=== PATIENT | female | born 1950 | race African-American/Black ===

== ENCOUNTER 2017-02-05 15:57 | Inpatient (IN) | payer OTHER ==
[2017-02-05] MEDS: SUCCINYLCHOLINE CHLORIDE VIAL 200 MG/10 ML VIAL IV STA ×2 (16:06→16:16)
[2017-02-05] MEDS ORDERED: MIDAZOLAM (PF) 1 MG/ML 5 ML VIAL IV STA (16:07)
[2017-02-05] MEDS ORDERED: EPINEPHrine 1 MG/ML 1 ML AMP SQ STA (16:07)
--- NOTE | 2017-02-05 16:27 | XR ---
EXAMINATION TYPE: XR chest 1V DATE OF EXAM: 02/05/2017 COMPARISON: NONE HISTORY: 66 year-old female post intubation, second attempt TECHNIQUE: Single frontal view of the chest is obtained. FINDINGS: ET tube tip appears satisfactory. Heart is borderline to mildly enlarged. Diffuse interstitial prominence and perihilar airspace opacit ies. No significant pleural effusion seen. IMPRESSION: 1. Satisfactory ET tube. 2. Correlate for CHF and pulmonary vascular congestion/developing interstitial pulmonary edema.
[2017-02-05] MEDS ORDERED: methylPREDNISolone SOD SUCCI 125 MG/2 ML VIAL IV STA (16:29)
[2017-02-05] MEDS ORDERED: IPRATROPIUM 0.5 MG/2.5 ML NEBU INHALATION STA (16:29)
[2017-02-05] MEDS ORDERED: ALBUTEROL NEBULIZED 2.5 MG/3 ML INHALATION STA (16:29)
[2017-02-05] MEDS ORDERED: PROPOFOL 1,000 MG/100 ML VIAL IV ONE (16:29)
[2017-02-05] MEDS ORDERED: SODIUM CHLORIDE 0.9% 1,000 ML IV STA ×2 (16:29)
[2017-02-05] MEDS ORDERED: PROPOFOL 1,000 MG/100 ML VIAL IV SCH (16:30)
--- NOTE | 2017-02-05 16:36 | XR ---
EXAMINATION TYPE: XR chest 1V portable DATE OF EXAM: 02/05/2017 COMPARISON: NONE HISTORY: Intubated TECHNIQUE: Single frontal view of the chest is obtained. FINDINGS: Endotracheal tube is high and could be advanced 1 to 2 cm. There is no sign of a pneumoth orax. Heart appears enlarged. I see no pleural effusion. There is probably pulmonary vascular congest ion. IMPRESSION: There is probably pulmonary edema and congestive heart failure. Cardiomegaly.
[2017-02-05 16:50] LABS: Anisocytosis Slight; Basophils # (A) 0.1 k/uL (0-0.2); Basophils % (A) 1 %; CH 26.7; CHCM 30.9; Eosinophils # (A) 0.2 k/uL (0-0.7); Eosinophils % (A) 2 %; HCT 38.9 % (34.0-46.0); HDW 2.25; HGB 11.9 gm/dL (11.4-16.0); Hypochromasia Slight; Luc # (Auto) 0.33; Luc % (Auto) 3; Lymphocytes # (A) 4.1 k/uL (1.0-4.8); Lymphocytes % (A) 37 %; MCH 26.5 pg (25.0-35.0); MCHC 30.6 g/dL (31.0-37.0); MCV 86.7 fL (80.0-100.0); Mean Platelet Volume 8.6; Monocytes % (A) 9 %; Neutrophils # (A) 5.4 k/uL (1.3-7.7); Neutrophils % (A) 49 %; RBC 4.49 m/uL (3.80-5.40); RDW 16.3 % (11.5-15.5); WBC 11.1 k/uL (3.8-10.6); WBC (Perox) 10.24
[2017-02-05 16:52] LABS: Calcium 9.2 mg/dL (8.4-10.2); Magnesium 1.6 mg/dL (1.6-2.3); Potassium 5.6 mmol/L (3.5-5.1); Total Bilirubin 0.5 mg/dL (0.2-1.3); Total Protein 7.5 g/dL (6.3-8.2)
--- NOTE | 2017-02-05 16:52 | ED ---
General Adult HPI - General Chief complaint: Shortness of Breath Stated complaint: diff breathing Time Seen by Provider: 02/05/17 16:22 Source: EMS, RN notes reviewed, old records reviewed Mode of arrival: EMS Limitations: altered mental status - History of Present Illness Initial comments: This is a 66-year-old female to the ER if severe extremities by EMS. Severe respiratory distress, on the nonrebreather and nonresponsive. Unable to obtain history from patient, history obtained from EMS and patient's chart - Related Data Home Medications Medication Instructions Recorded Confirmed Albuterol Inhaler [Ventolin Hfa 2 puff INHALATION RT-Q4H PRN 02/05/17 02/05/17 Inhaler] Albuterol Nebulized [Ventolin 2.5 mg INHALATION RT-TID 02/05/17 02/05/17 Nebulized] Aspirin EC [Ecotrin Low Dose] 81 mg PO DAILY 02/05/17 02/05/17 Atorvastatin [Lipitor] 10 mg PO DAILY 02/05/17 02/05/17 Budesonide [Pulmicort] 2 mg INHALATION RT-QID 02/05/17 02/05/17 Insulin Aspart [NovoLOG] See Protocol SQ AC-TID MDD 90 units 02/05/17 02/05/17 Insulin Glargine [Lantus] 56 unit SQ HS 02/05/17 02/05/17 Labetalol HCl [Trandate] 300 mg PO BID 02/05/17 02/05/17 Losartan Potassium [Cozaar] 100 mg PO DAILY 02/05/17 02/05/17 amLODIPine BESYLATE [Norvasc] 10 mg PO DAILY 02/05/17 02/05/17 traMADol HCL [Ultram] 50 mg PO Q6HR PRN 02/05/17 02/05/17 Allergies Allergy/AdvReac Type Severity Reaction Status Date / Time hydralazine Allergy Anaphylaxis Verified 02/05/17 16:10 Penicillins Allergy Anaphylaxis Verified 02/05/17 16:10 metformin AdvReac Unknown Verified 02/05/17 16:10 Review of Systems ROS Statement: Those systems with pertinent positive or pertinent negative responses have been documented in the HPI. ROS Other: All systems not noted in ROS Statement are negative. Past Medical History Additional Past Medical History / Comment(s): SOB History of Any Multi-Drug Resistant Organisms: Unobtainable Past Surgical History: Unable to Obtain Past Psychological History: Unable to Obtain General Exam Limitations: altered mental status General appearance: alert, anxious, lethargic, obtunded, in distress Head exam: Present: atraumatic, normocephalic, normal inspection Eye exam: Present: normal appearance, PERRL, EOMI. Absent: scleral icterus, conjunctival injection, periorbital swelling ENT exam: Present: normal exam, mucous membranes moist Neck exam: Present: normal inspection. Absent: tenderness, meningismus, lymphadenopathy Respiratory exam: Present: normal lung sounds bilaterally. Absent: respiratory distress, wheezes, rales, rhonchi, stridor Cardiovascular Exam: Present: regular rate, normal rhythm, normal heart sounds. Absent: systolic murmur, diastolic murmur, rubs, gallop, clicks GI/Abdominal exam: Present: soft, normal bowel sounds. Absent: distended, tenderness, guarding, rebound, rigid Extremities exam: Present: normal inspection, full ROM, normal capillary refill. Absent: tenderness, pedal edema, joint swelling, calf tenderness Back exam: Present: normal inspection Neurological exam: Present: alert, oriented X3, CN II-XII intact Psychiatric exam: Present: normal affect, normal mood Skin exam: Present: warm, dry, intact, normal color. Absent: rash Course Vital Signs 02/05/17 02/05/17 02/05/17 16:03 16:09 16:35 Temperature Pulse Rate 98 92 97 Respiratory 38 H 22 20 Rate Blood Pressure 174/85 135/68 130/65 O2 Sat by Pulse 54 L 100 100 Oximetry 02/05/17 02/05/17 02/05/17 16:49 16:58 17:16 Temperature 100.4 F H Pulse Rate 99 90 92 Respiratory 22 22 Rate Blood Pressure 140/70 139/65 O2 Sat by Pulse 100 100 Oximetry 02/05/17 02/05/17 02/05/17 17:20 17:30 18:00 Temperature Pulse Rate 88 94 80 Respiratory 22 Rate Blood Pressure 140/67 O2 Sat by Pulse 100 Oximetry - Reevaluation(s) Reevaluation #1: 02/05/17 18:17 Patient innovated profound hypoxia and altered mental status EKG Findings - EKG Comments: EKG Findings:: EKG shows sinus tachycardia rate 13, NC 186, QRS 90, QTc 474 Procedures - Intubation Time Out Performed: Yes Sedative: Versed Paralytic: Succinylcholine Laryngoscope: Katja Size: 4 ET Tube Size: 6.5 ET Tube Uncuffed: No Tube Secured Location: teeth Tube Placement Confirmation: visualized tube passing through cords, equal breath sounds bilaterally Patient Tolerated Procedure: well Intubation Complications: none Medical Decision Making - Medical Decision Making 66. ER for evaluation regarding respiratory distress, patient having profound hypoxia pneumonia and underlying COPD. Patient will be admitted for continued life-support, patient was placed under ICU - Lab Data Result diagrams: 02/05/17 16:05 02/05/17 16:05 Lab Results 02/05/17 02/05/17 02/05/17 Range/Units 16:05 16:05 16:05 WBC 11.1 H (3.8-10.6) k/uL RBC 4.49 (3.80-5.40) m/uL Hgb 11.9 (11.4-16.0) gm/dL Hct 38.9 (34.0-46.0) % MCV 86.7 (80.0-100.0) fL MCH 26.5 (25.0-35.0) pg MCHC 30.6 L (31.0-37.0) g/dL RDW 16.3 H (11.5-15.5) % Plt Count 256 (150-450) k/uL Neutrophils % 49 % Lymphocytes % 37 % Monocytes % 9 % Eosinophils % 2 % Basophils % 1 % Neutrophils # 5.4 (1.3-7.7) k/uL Lymphocytes # 4.1 (1.0-4.8) k/uL Monocytes # 1.0 (0-1.0) k/uL Eosinophils # 0.2 (0-0.7) k/uL Basophils # 0.1 (0-0.2) k/uL Hypochromasia Slight Anisocytosis Slight PT (9.0-12.0) sec INR (<1.2) APTT (22.0-30.0) sec Sample Site ABG pH (7.35-7.45) ABG pCO2 (35-45) mmHg ABG pO2 (83-108) mmHg ABG HCO3 (21-25) mmol/L ABG Total CO2 (19-24) mmol/L ABG O2 Saturation (94-97) % ABG Base Excess mmol/L FiO2 % Sodium 141 (137-145) mmol/L Potassium 5.6 H (3.5-5.1) mmol/L Chloride 104 (98-107) mmol/L Carbon Dioxide 26 (22-30) mmol/L Anion Gap 11 mmol/L BUN 22 H (7-17) mg/dL Creatinine 1.11 H (0.52-1.04) mg/dL Est GFR (MDRD) Af Amer 60 (>60 ml/min/1.73 sqM) Est GFR (MDRD) Non-Af 49 (>60 ml/min/1.73 sqM) Glucose 197 H (74-99) mg/dL Calcium 9.2 (8.4-10.2) mg/dL Magnesium 1.6 (1.6-2.3) mg/dL Total Bilirubin 0.5 (0.2-1.3) mg/dL AST 25 (14-36) U/L ALT 27 (9-52) U/L Alkaline Phosphatase 129 H (38-126) U/L Total Creatine Kinase 158 H (30-135) U/L CK-MB (CK-2) 0.5 (0.0-2.4) ng/mL CK-MB (CK-2) Rel Index 0.3 Troponin I <0.012 (0.000-0.034) ng/mL NT-Pro-B Natriuret Pep pg/mL Total Protein 7.5 (6.3-8.2) g/dL Albumin 4.3 (3.5-5.0) g/dL Urine Color Urine Appearance (Clear) Urine pH (5.0-8.0) Ur Specific Emerson (1.001-1.035) Urine Protein (Negative) Urine Glucose (UA) (Negative) Urine Ketones (Negative) Urine Blood (Negative) Urine Nitrite (Negative) Urine Bilirubin (Negative) Urine Urobilinogen (<2.0) mg/dL Ur Leukocyte Esterase (Negative) Urine RBC (0-5) /hpf Urine WBC (0-5) /hpf Urine Mucus (None) /hpf 02/05/17 02/05/17 02/05/17 Range/Units 16:05 16:05 16:30 WBC (3.8-10.6) k/uL RBC (3.80-5.40) m/uL Hgb (11.4-16.0) gm/dL Hct (34.0-46.0) % MCV (80.0-100.0) fL MCH (25.0-35.0) pg MCHC (31.0-37.0) g/dL RDW (11.5-15.5) % Plt Count (150-450) k/uL Neutrophils % % Lymphocytes % % Monocytes % % Eosinophils % % Basophils % % Neutrophils # (1.3-7.7) k/uL Lymphocytes # (1.0-4.8) k/uL Monocytes # (0-1.0) k/uL Eosinophils # (0-0.7) k/uL Basophils # (0-0.2) k/uL Hypochromasia Anisocytosis PT 10.4 (9.0-12.0) sec INR 1.0 (<1.2) APTT 22.1 (22.0-30.0) sec Sample Site ABG pH (7.35-7.45) ABG pCO2 (35-45) mmHg ABG pO2 (83-108) mmHg ABG HCO3 (21-25) mmol/L ABG Total CO2 (19-24) mmol/L ABG O2 Saturation (94-97) % ABG Base Excess mmol/L FiO2 % Sodium (137-145) mmol/L Potassium (3.5-5.1) mmol/L Chloride (98-107) mmol/L Carbon Dioxide (22-30) mmol/L Anion Gap mmol/L BUN (7-17) mg/dL Creatinine (0.52-1.04) mg/dL Est GFR (MDRD) Af Amer (>60 ml/min/1.73 sqM) Est GFR (MDRD) Non-Af (>60 ml/min/1.73 sqM) Glucose (74-99) mg/dL Calcium (8.4-10.2) mg/dL Magnesium (1.6-2.3) mg/dL Total Bilirubin (0.2-1.3) mg/dL AST (14-36) U/L ALT (9-52) U/L Alkaline Phosphatase (38-126) U/L Total Creatine Kinase (30-135) U/L CK-MB (CK-2) (0.0-2.4) ng/mL CK-MB (CK-2) Rel Index Troponin I (0.000-0.034) ng/mL NT-Pro-B Natriuret Pep 53 pg/mL Total Protein (6.3-8.2) g/dL Albumin (3.5-5.0) g/dL Urine Color Light Yellow Urine Appearance Clear (Clear) Urine pH 6.0 (5.0-8.0) Ur Specific Emerson 1.008 (1.001-1.035) Urine Protein 1+ H (Negative) Urine Glucose (UA) 1+ H (Negative) Urine Ketones Negative (Negative) Urine Blood Negative (Negative) Urine Nitrite Negative (Negative) Urine Bilirubin Negative (Negative) Urine Urobilinogen <2.0 (<2.0) mg/dL Ur Leukocyte Esterase Negative (Negative) Urine RBC <1 (0-5) /hpf Urine WBC 1 (0-5) /hpf Urine Mucus Rare H (None) /hpf 02/05/17 Range/Units 17:12 WBC (3.8-10.6) k/uL RBC (3.80-5.40) m/uL Hgb (11.4-16.0) gm/dL Hct (34.0-46.0) % MCV (80.0-100.0) fL MCH (25.0-35.0) pg MCHC (31.0-37.0) g/dL RDW (11.5-15.5) % Plt Count (150-450) k/uL Neutrophils % % Lymphocytes % % Monocytes % % Eosinophils % % Basophils % % Neutrophils # (1.3-7.7) k/uL Lymphocytes # (1.0-4.8) k/uL Monocytes # (0-1.0) k/uL Eosinophils # (0-0.7) k/uL Basophils # (0-0.2) k/uL Hypochromasia Anisocytosis PT (9.0-12.0) sec INR (<1.2) APTT (22.0-30.0) sec Sample Site R RAD ABG pH 7.28 L (7.35-7.45) ABG pCO2 44 (35-45) mmHg ABG pO2 241 H (83-108) mmHg ABG HCO3 20 L (21-25) mmol/L ABG Total CO2 22 (19-24) mmol/L ABG O2 Saturation 99.8 H (94-97) % ABG Base Excess -5.4 mmol/L FiO2 100 % Sodium (137-145) mmol/L Potassium (3.5-5.1) mmol/L Chloride (98-107) mmol/L Carbon Dioxide (22-30) mmol/L Anion Gap mmol/L BUN (7-17) mg/dL Creatinine (0.52-1.04) mg/dL Est GFR (MDRD) Af Amer (>60 ml/min/1.73 sqM) Est GFR (MDRD) Non-Af (>60 ml/min/1.73 sqM) Glucose (74-99) mg/dL Calcium (8.4-10.2) mg/dL Magnesium (1.6-2.3) mg/dL Total Bilirubin (0.2-1.3) mg/dL AST (14-36) U/L ALT (9-52) U/L Alkaline Phosphatase (38-126) U/L Total Creatine Kinase (30-135) U/L CK-MB (CK-2) (0.0-2.4) ng/mL CK-MB (CK-2) Rel Index Troponin I (0.000-0.034) ng/mL NT-Pro-B Natriuret Pep pg/mL Total Protein (6.3-8.2) g/dL Albumin (3.5-5.0) g/dL Urine Color Urine Appearance (Clear) Urine pH (5.0-8.0) Ur Specific Emerson (1.001-1.035) Urine Protein (Negative) Urine Glucose (UA) (Negative) Urine Ketones (Negative) Urine Blood (Negative) Urine Nitrite (Negative) Urine Bilirubin (Negative) Urine Urobilinogen (<2.0) mg/dL Ur Leukocyte Esterase (Negative) Urine RBC (0-5) /hpf Urine WBC (0-5) /hpf Urine Mucus (None) /hpf - Radiology Data Radiology results: report reviewed (Chest x-ray initial shows high ET tube, infiltrates and edema Chest x-ray shows improving in position of ET tube), image reviewed Critical Care Time Critical Care Time: Yes Total Critical Care Time: 65 Disposition Clinical Impression: Congestive heart failure, Acute pulmonary edema, Adult respiratory distress syndrome, Acute exacerbation of chronic obstructive airways disease, Acute respiratory failure, Community acquired pneumonia, Hypoxia Disposition: ADMITTED IP TO THIS HOSP Condition: Critical Referrals: None,Stated [REFERRING] - 1-2 days
[2017-02-05 16:56] LABS: Partial Thromboplastin Time 22.1 sec (22.0-30.0); Prothrombin Time 10.4 sec (9.0-12.0)
[2017-02-05 17:02] LABS: Appearance,Urine Clear (Clear); Bilirubin,Urine Negative (Negative); Glucose,Urine (UA) 1+ (Negative); Ketones,Urine Negative (Negative); Leukocyte Esterase,Urine Negative (Negative); Mucus,Urine Rare /hpf; Nitrite,Urine Negative (Negative); Particle Count 1875; Protein,Urine 1+ (Negative); RBC,Urine <1 /hpf (0-5); Specific Gravity,Urine 1.008 (1.001-1.035); UA Billing (MACRO vs. MICRO) MICRO; Urobilinogen,Urine <2.0 mg/dL (<2.0); WBC,Urine 1 /hpf (0-5)
[2017-02-05 17:03] LABS: Creatine Kinase 158 U/L (30-135)
[2017-02-05 17:15] LABS: Creatine Kinase MB 0.5 ng/mL (0.0-2.4); Troponin I <0.012 ng/mL (0.000-0.034)
[2017-02-05] MEDS ORDERED: ONDANSETRON 4 MG/2 ML VIAL IVP PRN (17:30)
[2017-02-05] MEDS ORDERED: LEVOFLOXACIN 750MG-D5W PMX 750 MG in DEXTROSE/WATER 1 150ML.BAG IVPB STA (17:30)
[2017-02-05] MEDS ORDERED: ONDANSETRON 4 MG/2 ML VIAL IVP STA (17:30)
[2017-02-05] MEDS ORDERED: IPRATROPIUM-ALBUTEROL 3 ML NEB INHALATION STA (17:45)
[2017-02-05] MEDS ORDERED: ACETAMINOPHEN SUPPOSITORY 650 MG SUPP RECTAL PRN (17:46)
[2017-02-05] MEDS ORDERED: CEFEPIME 2 GM in SODIUM CHLORIDE 0.9% 50 ML IVPB STA (17:46)
[2017-02-05] MEDS ORDERED: ACETAMINOPHEN IV (For NPO) 1,000 MG in EMPTY BAG 1 BAG IVPB STA (17:46)
[2017-02-05] MEDS ORDERED: NALOXONE 0.4 MG/ML 1 ML VIAL IV PRN ×2 (17:46→19:46)
[2017-02-05] MEDS ORDERED: MIDAZOLAM 2 MG/2 ML VIAL IV STA (17:56)
[2017-02-05 18:00] LABS: ABG Base Excess -5.4 mmol/L; ABG HCO3 20 mmol/L (21-25); ABG PCO2 44 mmHg (35-45); ABG PH 7.28 (7.35-7.45); ABG PO2 241 mmHg (83-108); ABG TCO2 22 mmol/L (19-24)
[2017-02-05 18:02] LABS: ABG Oxygen Saturation 99.8 % (94-97)
[2017-02-05 19:01] LABS: Glucose,Whole Blood 198 mg/dL (75-99)
[2017-02-05] MEDS: IPRATROPIUM-ALBUTEROL 3 ML NEB INHALATION SCH ×2 (19:57→23:05)
[2017-02-05] MEDS ORDERED: Magnesium Replacement Protocol 1 EACH MISC MISCELLANE PRN (19:57)
--- NOTE | 2017-02-05 20:02 | XR ---
EXAMINATION TYPE: XR chest 1V portable DATE OF EXAM: 02/05/2017 COMPARISON: Today HISTORY: Tube placement TECHNIQUE: Single frontal view of the chest is obtained. FINDINGS: Endotracheal tube is low and 1 cm from the travon. There is a nasogastric tube that appear s in good position. I see no pneumothorax. Trachea is midline. There is no heart failure. IMPRESSION: Endotracheal tube is low and could be pulled back 2 cm. There is clearing of the mild pu lmonary congestion compared to supine exam at 4:00 PM today.
[2017-02-05 20:35] LABS: Glucose,Whole Blood 183 mg/dL (75-99)
[2017-02-05] MEDS: CHLORHEXIDINE GLUCONATE 15 ML CUP MUCOUS MEM SCH (20:35)
[2017-02-05] MEDS: MAGNESIUM SULFATE-D5W PMX 1 GM in DEXTROSE/WATER 1 100ML.BAG IVPB SCH ×2 (20:35→21:53)
[2017-02-05] MEDS: INSULIN LISPRO (humaLOG) 300 UNIT/3 ML VIAL SQ SCH ×2 (20:36→23:45)
[2017-02-05] MEDS: PROPOFOL 1,000 MG/100 ML VIAL IV SCH (22:12)
[2017-02-05 23:40] LABS: Glucose,Whole Blood 225 mg/dL (75-99)
[2017-02-05] MEDS: methylPREDNISolone SOD SUCCI 125 MG/2 ML VIAL IV SCH (23:46)
[2017-02-06] MEDS: PROPOFOL 1,000 MG/100 ML VIAL IV SCH ×5 (01:27→18:23)
[2017-02-06 01:32] LABS: Glucose,Whole Blood 196 mg/dL (75-99)
[2017-02-06 03:20] LABS: Anisocytosis Slight; Basophils % (A) 0 %; CH 26.6; Eosinophils # (A) 0.1 k/uL (0-0.7); Eosinophils % (A) 1 %; HCT 35.2 % (34.0-46.0); HDW 2.31; Hypochromasia Slight; Luc # (Auto) 0.02; Luc % (Auto) 0; Lymphocytes # (A) 0.9 k/uL (1.0-4.8); Lymphocytes % (A) 8 %; MCH 26.9 pg (25.0-35.0); MCHC 31.2 g/dL (31.0-37.0); MCV 86.1 fL (80.0-100.0); Mean Platelet Volume 8.6; Monocytes # (A) 0.2 k/uL (0-1.0); Monocytes % (A) 1 %; Neutrophils # (A) 9.5 k/uL (1.3-7.7); Neutrophils % (A) 89 %; RBC 4.09 m/uL (3.80-5.40); RDW 16.2 % (11.5-15.5); WBC 10.6 k/uL (3.8-10.6); WBC (Perox) 11.35
[2017-02-06 04:01] LABS: Anion Gap 10 mmol/L; Calcium 9.2 mg/dL (8.4-10.2); Carbon Dioxide 18 mmol/L (22-30); Chloride 110 mmol/L (98-107); Glucose 220 mg/dL (74-99); Non-African American GFR(MDRD) >60 (>60 ml/min/1.73 sqM); Sodium 138 mmol/L (137-145); Total Bilirubin 0.5 mg/dL (0.2-1.3); Total Protein 6.4 g/dL (6.3-8.2)
[2017-02-06 04:07] LABS: Blood Urea Nitrogen 19 mg/dL (7-17); Phosphorous 2.8 mg/dL (2.5-4.5)
[2017-02-06 04:08] LABS: ALT 24 U/L (9-52); AST 32 U/L (14-36); Alkaline Phosphatase 125 U/L (38-126); Magnesium 2.2 mg/dL (1.6-2.3)
[2017-02-06] MEDS: IPRATROPIUM-ALBUTEROL 3 ML NEB INHALATION SCH ×6 (04:11→23:38)
[2017-02-06 04:15] LABS: Glucose,Whole Blood 190 mg/dL (75-99)
[2017-02-06] MEDS: INSULIN LISPRO (humaLOG) 300 UNIT/3 ML VIAL SQ SCH ×6 (04:15→23:40)
[2017-02-06] MEDS: SODIUM CHLORIDE 0.9% 1,000 ML IV SCH ×3 (04:50→22:38)
[2017-02-06] MEDS: methylPREDNISolone SOD SUCCI 125 MG/2 ML VIAL IV SCH ×4 (05:28→23:37)
[2017-02-06 06:01] LABS: ABG Base Excess -3.2 mmol/L; ABG HCO3 21 mmol/L (21-25); ABG PCO2 39 mmHg (35-45); ABG PH 7.36 (7.35-7.45); ABG PO2 135 mmHg (83-108); ABG TCO2 23 mmol/L (19-24)
[2017-02-06] MEDS ORDERED: INSULIN LISPRO (humaLOG) 300 UNIT/3 ML VIAL SQ SCH (07:30)
[2017-02-06 08:22] LABS: Glucose,Whole Blood 209 mg/dL (75-99)
--- NOTE | 2017-02-06 08:24 | XR ---
EXAMINATION TYPE: XR chest 1V portable DATE OF EXAM: 02/06/2017 COMPARISON: 02/05/2017 INDICATION: Line adjustment TECHNIQUE: Single frontal view of the chest is obtained. FINDINGS: The heart size is slightly prominent. The pulmonary vasculature is normal. The lungs are clear. Endotracheal tube tip is approximately 2.2 cm above the travon appears slightly pulled back from prio r study. Nasogastric tube transverses the thorax curled within the left upper quadrant of the abdomen . IMPRESSION: 1. No acute pulmonary process. 2. Lines and catheters discussed above.
[2017-02-06] MEDS: CHLORHEXIDINE GLUCONATE 15 ML CUP MUCOUS MEM SCH ×2 (08:51→20:00)
[2017-02-06] MEDS: CEFEPIME 2 GM in SODIUM CHLORIDE 0.9% 50 ML IVPB SCH ×2 (08:51→20:00)
[2017-02-06] MEDS: PANTOPRAZOLE 40 MG/10 ML VIAL IV SCH (08:52)
[2017-02-06] MEDS: ENOXAPARIN 40 MG/0.4 ML SYRINGE SQ SCH (08:52)
[2017-02-06] MEDS: ENALAPRILAT 1.25 MG/ML 1 ML VIAL IVP PRN (10:04)
[2017-02-06] MEDS: MORPHINE SULFATE 4 MG/ML SYRINGE IV PRN ×3 (10:23→23:51)
[2017-02-06] MEDS: LORazepam 2 MG/ML SYRINGE IV PRN ×3 (10:57→15:38)
[2017-02-06] MEDS ORDERED: RX INFO: IV CONTRAST WAS GIVEN 1 EACH MISC MISCELLANE PRN (10:58)
--- NOTE | 2017-02-06 11:10 | P.HPIM ---
History of Present Illness H&P Date: 02/06/17 Chief Complaint: Difficulty breathing This is a 66-year-old -[place] female patient of Dr. Pizano with past medical history of diabetes, hypertension, possible COPD but nurse relates the patient has no history of smoking. Patient apparently was at [facility] in the ER and was discharged home and then came into [facility] emergency center by EMS for acute respiratory distress on nonrebreather and unresponsive. All tox was 54 and patient was intubated and placed on mechanical ventilation. Chest x-ray showed correlate for CHF and pulmonary vascular congestion and developing pulmonary edema, cardiomegaly. Repeat chest x-ray this morning addressed ET tube to be pulled back 2 cm. Clearing of the mild pulmonary congestion compared to yesterday's exam. Patient was started on DuoNeb treatments every 4 hours, cefepime 1 dose and continued on Levaquin, IV Solu-Medrol and admitted to the intensive care unit with consult to Dr. Norwood. Sputum culture is in progress. Tidal volume 450, FiO2 40 and PEEP of 5. NG tube is to suction at this time with plan to start tube feeding later today. Return from NG tube is dark brown/green. Blood pressure has been stable. Patient currently has had an admission at [facility] for DKA at that time was on ventilator support. Patient apparently improved and then left the facility AMA. Review of Systems ROS unobtainable: due to endotracheal tube Past Medical History Past Medical History: Diabetes Mellitus, Hypertension Additional Past Medical History / Comment(s): SOB, DKA History of Any Multi-Drug Resistant Organisms: Unobtainable Past Surgical History: Tonsillectomy Past Psychological History: Unable to Obtain Medications and Allergies Home Medications Medication Instructions Recorded Confirmed Type Albuterol Inhaler [Ventolin Hfa 2 puff INHALATION RT-Q4H PRN 02/05/17 02/05/17 History Inhaler] Albuterol Nebulized [Ventolin 2.5 mg INHALATION RT-TID 02/05/17 02/05/17 History Nebulized] Aspirin EC [Ecotrin Low Dose] 81 mg PO DAILY 02/05/17 02/05/17 History Atorvastatin [Lipitor] 10 mg PO DAILY 02/05/17 02/05/17 History Budesonide [Pulmicort] 2 mg INHALATION RT-QID 02/05/17 02/05/17 History Insulin Aspart [NovoLOG] See Protocol SQ AC-TID MDD 90 units 02/05/17 02/05/17 History Insulin Glargine [Lantus] 56 unit SQ HS 02/05/17 02/05/17 History Labetalol HCl [Trandate] 300 mg PO BID 02/05/17 02/05/17 History Losartan Potassium [Cozaar] 100 mg PO DAILY 02/05/17 02/05/17 History amLODIPine BESYLATE [Norvasc] 10 mg PO DAILY 02/05/17 02/05/17 History traMADol HCL [Ultram] 50 mg PO Q6HR PRN 02/05/17 02/05/17 History Allergies Allergy/AdvReac Type Severity Reaction Status Date / Time hydralazine Allergy Anaphylaxis Verified 02/05/17 16:10 Penicillins Allergy Anaphylaxis Verified 02/05/17 16:10 metformin AdvReac Unknown Verified 02/05/17 16:10 Physical Exam Vitals: Vital Signs Temp Pulse Resp BP Pulse Ox 02/06/17 07:59 81 02/06/17 07:00 76 14 152/90 99 02/06/17 06:00 74 14 142/79 100 02/06/17 05:00 76 14 139/80 99 02/06/17 04:23 75 02/06/17 04:13 76 02/06/17 04:00 97.7 F 66 14 139/72 99 02/06/17 03:00 73 14 133/70 99 02/06/17 02:00 73 13 128/71 99 02/06/17 01:00 77 14 129/69 99 02/06/17 00:00 97.5 F L 75 14 140/77 99 02/05/17 23:20 74 02/05/17 23:11 73 02/05/17 23:00 73 14 126/70 99 02/05/17 22:00 75 14 126/67 99 02/05/17 21:00 76 14 120/67 100 02/05/17 20:08 82 02/05/17 20:00 97.5 F L 78 14 125/80 100 02/05/17 19:57 79 02/05/17 19:06 97.5 F L 84 14 146/78 100 02/05/17 18:42 100.4 F H 83 16 134/70 100 02/05/17 18:00 80 02/05/17 17:30 94 22 140/67 100 02/05/17 17:20 88 02/05/17 17:16 92 22 139/65 100 02/05/17 16:58 90 02/05/17 16:49 100.4 F H 99 22 140/70 100 02/05/17 16:35 97 20 130/65 100 02/05/17 16:09 92 22 135/68 100 02/05/17 16:03 98 38 H 174/85 54 L Intake and Output 02/05/17 02/06/17 02/06/17 22:59 06:59 14:59 Intake Total 1583.754 900 100 Output Total 250 445 295 Balance 1333.754 455 -195 Intake: IV 550 800 100 Cefepime 2 gm In Sodium 50 Chloride 0.9% 50 ml @ 100 mls/hr IVPB ONCE STA Rx# :[id number] Magnesium Sulfate-D5w Pmx 200 1 gm In Dextrose/Water 1 100ml.bag @ 100 mls/hr IVPB Q1H RAISA Rx#: [id number] Sodium Chloride 0.9% 1, 300 800 100 000 ml @ 100 mls/hr IV . Q10H STA Rx#:[id number] Amount of Fluid Infused ( 1000 ml) Intake, IV Titration 33.754 100 Amount Propofol 1,000 mg In 100 33.754 ml @ 25 MCG/KG/MIN 15.555 mls/hr IV .Q6H26M ONE Rx #:[id number] Propofol 1,000 mg In 100 100 ml @ Titrate IV .Q0M RAISA Rx#:[id number] Output: Gastric Drainage 200 Urine 250 445 95 Other: Voiding Method Indwelling Catheter Indwelling Catheter Weight 103.7 kg 106.2 kg Gen: This is a morbidly obese 66-year-old -[place] female. She is currently intubated and on mechanical ventilation and appears to be comfortable. HEENT: Head is atraumatic, normocephalic. Pupils equal, round. Sclerae is anicteric. ET and OG in place. NECK: Thick and short. Supple. No JVD. No lymphadenopathy. No thyromegaly. LUNGS: Diminished but otherwise clear to auscultation. No intercostal retractions. HEART: Regular rate and rhythm. No murmur. ABDOMEN: Obese. Soft. Bowel sounds are present. No masses. No tenderness. EXTREMITIES: No pedal edema. No calf tenderness. NEUROLOGICAL: Patient is on sedation and mechanical ventilation. Results CBC & Chem 7: 02/06/17 03:09 02/06/17 04:35 Labs: Abnormal Lab Results - Last 24 Hours (Table) 02/05/17 02/05/17 02/05/17 Range/Units 16:05 16:05 16:05 WBC 11.1 H (3.8-10.6) k/uL Hgb (11.4-16.0) gm/dL MCHC 30.6 L (31.0-37.0) g/dL RDW 16.3 H (11.5-15.5) % Neutrophils # (1.3-7.7) k/uL Lymphocytes # (1.0-4.8) k/uL ABG pH (7.35-7.45) ABG pO2 (83-108) mmHg ABG HCO3 (21-25) mmol/L ABG O2 Saturation (94-97) % Potassium 5.6 H (3.5-5.1) mmol/L Chloride (98-107) mmol/L Carbon Dioxide (22-30) mmol/L BUN 22 H (7-17) mg/dL Creatinine 1.11 H (0.52-1.04) mg/dL Glucose 197 H (74-99) mg/dL POC Glucose (mg/dL) (75-99) mg/dL Alkaline Phosphatase 129 H (38-126) U/L Total Creatine Kinase 158 H (30-135) U/L Urine Protein (Negative) Urine Glucose (UA) (Negative) Urine Mucus (None) /hpf 02/05/17 02/05/17 02/05/17 Range/Units 16:30 17:12 18:59 WBC (3.8-10.6) k/uL Hgb (11.4-16.0) gm/dL MCHC (31.0-37.0) g/dL RDW (11.5-15.5) % Neutrophils # (1.3-7.7) k/uL Lymphocytes # (1.0-4.8) k/uL ABG pH 7.28 L (7.35-7.45) ABG pO2 241 H (83-108) mmHg ABG HCO3 20 L (21-25) mmol/L ABG O2 Saturation 99.8 H (94-97) % Potassium (3.5-5.1) mmol/L Chloride (98-107) mmol/L Carbon Dioxide (22-30) mmol/L BUN (7-17) mg/dL Creatinine (0.52-1.04) mg/dL Glucose (74-99) mg/dL POC Glucose (mg/dL) 198 H (75-99) mg/dL Alkaline Phosphatase (38-126) U/L Total Creatine Kinase (30-135) U/L Urine Protein 1+ H (Negative) Urine Glucose (UA) 1+ H (Negative) Urine Mucus Rare H (None) /hpf 02/05/17 02/05/17 02/06/17 Range/Units 20:34 23:39 01:31 WBC (3.8-10.6) k/uL Hgb (11.4-16.0) gm/dL MCHC (31.0-37.0) g/dL RDW (11.5-15.5) % Neutrophils # (1.3-7.7) k/uL Lymphocytes # (1.0-4.8) k/uL ABG pH (7.35-7.45) ABG pO2 (83-108) mmHg ABG HCO3 (21-25) mmol/L ABG O2 Saturation (94-97) % Potassium (3.5-5.1) mmol/L Chloride (98-107) mmol/L Carbon Dioxide (22-30) mmol/L BUN (7-17) mg/dL Creatinine (0.52-1.04) mg/dL Glucose (74-99) mg/dL POC Glucose (mg/dL) 183 H 225 H 196 H (75-99) mg/dL Alkaline Phosphatase (38-126) U/L Total Creatine Kinase (30-135) U/L Urine Protein (Negative) Urine Glucose (UA) (Negative) Urine Mucus (None) /hpf 02/06/17 02/06/17 02/06/17 Range/Units 03:09 03:09 04:13 WBC (3.8-10.6) k/uL Hgb 11.0 L (11.4-16.0) gm/dL MCHC (31.0-37.0) g/dL RDW 16.2 H (11.5-15.5) % Neutrophils # 9.5 H (1.3-7.7) k/uL Lymphocytes # 0.9 L (1.0-4.8) k/uL ABG pH (7.35-7.45) ABG pO2 (83-108) mmHg ABG HCO3 (21-25) mmol/L ABG O2 Saturation (94-97) % Potassium (3.5-5.1) mmol/L Chloride 110 H (98-107) mmol/L Carbon Dioxide 18 L (22-30) mmol/L BUN 19 H (7-17) mg/dL Creatinine (0.52-1.04) mg/dL Glucose 220 H (74-99) mg/dL POC Glucose (mg/dL) 190 H (75-99) mg/dL Alkaline Phosphatase (38-126) U/L Total Creatine Kinase (30-135) U/L Urine Protein (Negative) Urine Glucose (UA) (Negative) Urine Mucus (None) /hpf 02/06/17 Range/Units 05:48 WBC (3.8-10.6) k/uL Hgb (11.4-16.0) gm/dL MCHC (31.0-37.0) g/dL RDW (11.5-15.5) % Neutrophils # (1.3-7.7) k/uL Lymphocytes # (1.0-4.8) k/uL ABG pH (7.35-7.45) ABG pO2 135 H (83-108) mmHg ABG HCO3 (21-25) mmol/L ABG O2 Saturation 99.0 H (94-97) % Potassium (3.5-5.1) mmol/L Chloride (98-107) mmol/L Carbon Dioxide (22-30) mmol/L BUN (7-17) mg/dL Creatinine (0.52-1.04) mg/dL Glucose (74-99) mg/dL POC Glucose (mg/dL) (75-99) mg/dL Alkaline Phosphatase (38-126) U/L Total Creatine Kinase (30-135) U/L Urine Protein (Negative) Urine Glucose (UA) (Negative) Urine Mucus (None) /hpf Microbiology - Last 24 Hours (Table) 02/05/17 16:30 Gram Stain - Preliminary Sputum Sputum Culture - Preliminary Thrombosis Risk Factor Assmnt - DVT/VTE Prophylaxis DVT/VTE Prophylaxis: Pharmacologic Prophylaxis ordered Assessment and Plan Plan: 1. Acute hypoxic respiratory failure and hypoxic encephalopathy secondary to COPD exacerbation, pulmonary edema and possible pneumonia with signs of early sepsis/SIRS. Continue DuoNeb treatments every 4 hours, cephapirin, Levaquin, Solu-Medrol IV. Consult with Dr. Norwood. Continue vent management per Dr. Norwood. Blood cultures ordered. D-dimer has been ordered by pulmonary medicine with plan for CTA if elevated. Echocardiogram ordered. 2. Diabetes mellitus. Continue Humalog scale every 4 hours. 3. History of hypertension. Patient is on Norvasc 10 mg daily, losartan 100 mg daily, labetalol 300 mg twice daily. Vasotec 1.25 mg IV every 6 hours as needed for systolic blood pressure greater than 160. 4. Hyperlipidemia. Patient is normally on Lipitor 10 mg daily. 5. DVT prophylaxis. Lovenox. 6. Gastroesophageal prophylaxis. Protonix. Patient will be admitted to the hospital for a minimum of 4 night stay. Discharge plan: to be determined Impression and plan of care have been directed as dictated by the signing physician. Ning Nolen nurse practitioner acting as scribe for signing physician.
--- NOTE | 2017-02-06 11:16 | P.CNPUL ---
History of Present Illness Consult date: 02/06/17 Requesting physician: Tj Espinoza Reason for consult: other Chief complaint: ICU management History of present illness: This is a 66-year-old female patient being seen examined and evaluated today in the intensive care unit. Apparently the patient was out shopping and other customers unknown to her notice the patient being in respiratory distress and called EMS. When EMS arrived the patient is in severe respiratory distress with pulse ox in the 80s. She was transported to [facility] and upon arrival she had oxygen saturating in the 50s. The patient was also nonresponsive. Patient was intubated in the emergency room and is adamantly admitted to the ICU on full respiratory support. EKG showed sinus tachycardia. Chest x-ray showed congestive heart failure and pulmonary vascular congestion with developing interstitial pulmonary edema and cardiomegaly. Patient's labs were reviewed on initial troponins was negative no repeat troponins were ordered , there was no lactic acid or d-dimer obtained in the emergency room. Of note this patient has had multiple admissions recently at [facility] where she has left [place] in the past. Patient has also been seen in the emergency room at [facility] where she refused to be admitted as well. Upon examination the patient is on mechanical ventilation with propofol for sedation currently the mechanical ventilator settings are on assist control mode with a respiratory rate of 14, tidal volume of 450, FiO2 40% and a PEEP of 5. Currently the patient is on 40 mics of propofol. No vasopressors at this time. Patient is able to open eyes and move upper extremities. She does follow simple commands. Review of Systems ROS unobtainable: due to endotracheal tube Past Medical History Past Medical History: Diabetes Mellitus, Hypertension Additional Past Medical History / Comment(s): SOB, severe DKA History of Any Multi-Drug Resistant Organisms: Unobtainable Past Surgical History: Tonsillectomy Past Psychological History: Unable to Obtain Medications and Allergies Home Medications Medication Instructions Recorded Confirmed Type Albuterol Inhaler [Ventolin Hfa 2 puff INHALATION RT-Q4H PRN 02/05/17 02/05/17 History Inhaler] Albuterol Nebulized [Ventolin 2.5 mg INHALATION RT-TID 02/05/17 02/05/17 History Nebulized] Aspirin EC [Ecotrin Low Dose] 81 mg PO DAILY 02/05/17 02/05/17 History Atorvastatin [Lipitor] 10 mg PO DAILY 02/05/17 02/05/17 History Budesonide [Pulmicort] 2 mg INHALATION RT-QID 02/05/17 02/05/17 History Insulin Aspart [NovoLOG] See Protocol SQ AC-TID MDD 90 units 02/05/17 02/05/17 History Insulin Glargine [Lantus] 56 unit SQ HS 02/05/17 02/05/17 History Labetalol HCl [Trandate] 300 mg PO BID 02/05/17 02/05/17 History Losartan Potassium [Cozaar] 100 mg PO DAILY 02/05/17 02/05/17 History amLODIPine BESYLATE [Norvasc] 10 mg PO DAILY 02/05/17 02/05/17 History traMADol HCL [Ultram] 50 mg PO Q6HR PRN 02/05/17 02/05/17 History Allergies Allergy/AdvReac Type Severity Reaction Status Date / Time hydralazine Allergy Anaphylaxis Verified 02/05/17 16:10 Penicillins Allergy Anaphylaxis Verified 02/05/17 16:10 metformin AdvReac Unknown Verified 02/05/17 16:10 Physical Exam Vitals: Vital Signs Temp Pulse Resp BP Pulse Ox 02/06/17 10:00 83 22 153/106 99 02/06/17 09:00 79 14 151/84 100 02/06/17 08:16 77 02/06/17 08:00 97.9 F 74 14 145/85 99 02/06/17 07:59 81 02/06/17 07:00 76 14 152/90 99 02/06/17 06:00 74 14 142/79 100 02/06/17 05:00 76 14 139/80 99 02/06/17 04:23 75 02/06/17 04:13 76 02/06/17 04:00 97.7 F 66 14 139/72 99 02/06/17 03:00 73 14 133/70 99 02/06/17 02:00 73 13 128/71 99 02/06/17 01:00 77 14 129/69 99 02/06/17 00:00 97.5 F L 75 14 140/77 99 02/05/17 23:20 74 02/05/17 23:11 73 02/05/17 23:00 73 14 126/70 99 02/05/17 22:00 75 14 126/67 99 02/05/17 21:00 76 14 120/67 100 02/05/17 20:08 82 02/05/17 20:00 97.5 F L 78 14 125/80 100 02/05/17 19:57 79 02/05/17 19:06 97.5 F L 84 14 146/78 100 02/05/17 18:42 100.4 F H 83 16 134/70 100 02/05/17 18:00 80 02/05/17 17:30 94 22 140/67 100 02/05/17 17:20 88 02/05/17 17:16 92 22 139/65 100 02/05/17 16:58 90 02/05/17 16:49 100.4 F H 99 22 140/70 100 02/05/17 16:35 97 20 130/65 100 02/05/17 16:09 92 22 135/68 100 02/05/17 16:03 98 38 H 174/85 54 L Intake and Output 02/05/17 02/06/17 02/06/17 22:59 06:59 14:59 Intake Total 1583.754 900 502.178 Output Total 250 445 630 Balance 1333.754 455 -127.822 Intake: IV 550 800 400 Cefepime 2 gm In Sodium 50 Chloride 0.9% 50 ml @ 100 mls/hr IVPB ONCE STA Rx# :[id number] Magnesium Sulfate-D5w Pmx 200 1 gm In Dextrose/Water 1 100ml.bag @ 100 mls/hr IVPB Q1H RAISA Rx#: [id number] Sodium Chloride 0.9% 1, 300 800 400 000 ml @ 100 mls/hr IV . Q10H STA Rx#:[id number] Amount of Fluid Infused ( 1000 ml) Intake, IV Titration 33.754 100 102.178 Amount Propofol 1,000 mg In 100 33.754 ml @ 25 MCG/KG/MIN 15.555 mls/hr IV .Q6H26M ONE Rx #:[id number] Propofol 1,000 mg In 100 100 102.178 ml @ Titrate IV .Q0M RAISA Rx#:[id number] Output: Gastric Drainage 200 Urine 250 445 430 Other: Voiding Method Indwelling Catheter Indwelling Catheter Indwelling Catheter Weight 103.7 kg 106.2 kg 106.7 kg Patient Weight 02/07/17 06:59 Weight 106.7 kg GENERAL EXAM: On mechanical ventilation with propofol for sedation HEAD: Normocephalic. EYES: Normal reaction of pupils, equal size. NOSE: Clear with pink turbinates. THROAT: No erythema or exudates. Lips and tongue appear to be slightly edematous. ET and OG present NECK: No masses, no JVD. Thick CHEST: No chest wall deformity. LUNGS: Lungs noted to be coarse throughout Equal air entry with no crackles, wheeze, rhonchi or dullness. Bases diminished. InSync with mechanical ventilation CVS: S1 and S2 normal with no audible mumurs, regular rhythm. ABDOMEN: No hepatosplenomegaly, normal bowel sounds, no guarding or rigidity. EXTREMITIES: No edema noted, pedal pulses palpable. SKIN: No rashes CENTRAL NERVOUS SYSTEM: Currently on sedation Results - Laboratory Findings CBC and BMP: 02/06/17 03:09 02/06/17 04:35 ABG ABG pH 7.36 (7.35-7.45) 02/06/17 05:48 ABG pCO2 39 mmHg (35-45) 02/06/17 05:48 ABG pO2 135 mmHg (83-108) H 02/06/17 05:48 ABG O2 Saturation 99.0 % (94-97) H 02/06/17 05:48 PT/INR, D-dimer PT 10.4 sec (9.0-12.0) 02/05/17 16:05 INR 1.0 (<1.2) 02/05/17 16:05 D-Dimer 3.92 mg/L FEU (<0.60) H 02/06/17 10:07 Abnormal lab findings: Abnormal Labs 02/05/17 02/05/17 02/05/17 16:05 16:05 16:05 WBC 11.1 H Hgb MCHC 30.6 L RDW 16.3 H Neutrophils # Lymphocytes # D-Dimer ABG pH ABG pO2 ABG HCO3 ABG O2 Saturation Potassium 5.6 H Chloride Carbon Dioxide BUN 22 H Creatinine 1.11 H Glucose 197 H POC Glucose (mg/dL) Alkaline Phosphatase 129 H Total Creatine Kinase 158 H Urine Protein Urine Glucose (UA) Urine Mucus 02/05/17 02/05/17 02/05/17 16:30 17:12 18:59 WBC Hgb MCHC RDW Neutrophils # Lymphocytes # D-Dimer ABG pH 7.28 L ABG pO2 241 H ABG HCO3 20 L ABG O2 Saturation 99.8 H Potassium Chloride Carbon Dioxide BUN Creatinine Glucose POC Glucose (mg/dL) 198 H Alkaline Phosphatase Total Creatine Kinase Urine Protein 1+ H Urine Glucose (UA) 1+ H Urine Mucus Rare H 02/05/17 02/05/17 02/06/17 20:34 23:39 01:31 WBC Hgb MCHC RDW Neutrophils # Lymphocytes # D-Dimer ABG pH ABG pO2 ABG HCO3 ABG O2 Saturation Potassium Chloride Carbon Dioxide BUN Creatinine Glucose POC Glucose (mg/dL) 183 H 225 H 196 H Alkaline Phosphatase Total Creatine Kinase Urine Protein Urine Glucose (UA) Urine Mucus 02/06/17 02/06/17 02/06/17 03:09 03:09 04:13 WBC Hgb 11.0 L MCHC RDW 16.2 H Neutrophils # 9.5 H Lymphocytes # 0.9 L D-Dimer ABG pH ABG pO2 ABG HCO3 ABG O2 Saturation Potassium Chloride 110 H Carbon Dioxide 18 L BUN 19 H Creatinine Glucose 220 H POC Glucose (mg/dL) 190 H Alkaline Phosphatase Total Creatine Kinase Urine Protein Urine Glucose (UA) Urine Mucus 02/06/17 02/06/17 02/06/17 05:48 08:21 10:07 WBC Hgb MCHC RDW Neutrophils # Lymphocytes # D-Dimer 3.92 H ABG pH ABG pO2 135 H ABG HCO3 ABG O2 Saturation 99.0 H Potassium Chloride Carbon Dioxide BUN Creatinine Glucose POC Glucose (mg/dL) 209 H Alkaline Phosphatase Total Creatine Kinase Urine Protein Urine Glucose (UA) Urine Mucus - Diagnostic Findings Chest x-ray: report reviewed, image reviewed Assessment and Plan Plan: Assessment Probable sepsis, we will obtain cultures. Acute hypoxic respiratory failure Acute exacerbation of COPD Probable Community-acquired pneumonia Pulmonary edema Hyperlipidemia History of diabetes mellitus History of hypertension Plan Labs and blood gases as well as x-rays have been reviewed. We will obtain a d- dimer and if elevated obtain a CTA as well. We will obtain a 2-D echo. Patient should remain on mechanical ventilation for today. We will trial a sedation holiday tomorrow morning as well as CPAP of 5/5, ABGs to be from 30 minutes after CPAP was initiated. Medications have been reviewed and will be continued as ordered. Cultures are in progress. Added budesonide We will initiate tube feedings. Continue with pulmonary hygiene, coughing and deep breathing exercises, and supportive care. Supplemental oxygen to maintain oxygen saturations of 92% or better. Continue nebulizer treatments. GI and DVT prophylaxis. We will continue to monitor labs/results and adjust treatment as necessary. Further recommendations pending. I performed an examination of the patient and discussed their management with the nurse practitioner. I have reviewed the nurse practitioner's note and agree with the documented findings and plan of care.
[2017-02-06 11:48] LABS: Glucose,Whole Blood 213 mg/dL (75-99)
[2017-02-06 12:11] LABS: Hemoglobin A1C 9.6 % (4.2-6.1)
--- NOTE | 2017-02-06 13:07 | CT ---
CT CHEST FOR PULMONARY EMBOLISM. EXAMINATION TYPE: CT angio chest DATE OF EXAM: 02/06/2017 INDICATION: Shortness of breath and cough CT DLP: 608.5 mGycm, Automated exposure control for dose reduction was used. CONTRAST: Patient injected with 100 mL of Omnipaque 350. COMPARISON: NONE TECHNIQUE: CT of the chest is performed on a spiral scan at 2 mm thick sections. Study is performed with intravenous contrast timed for evaluation for pulmonary embolism. This will limit additional po rtions of the evaluation. 3-D MIP images reconstructed by the technologist are reviewed on the compu ter in the coronal and sagittal planes. FINDINGS: Patient is intubated with the tip of the endotracheal tube above the travon. This is somewh at low lying, being approximately 1.2 cm above the travon. The nasogastric tube transverses the thora x is tip in the left upper quadrant of the abdomen. No persistent filling defects are evident to suggest an acute pulmonary embolism. No mediastinal or hilar adenopathy enlarged by CT criteria is evident. The ascending aorta diameter at the level of the main pulmonary artery is 3.4 cm. The main pulmonary artery diameter at the bifur cation is 2.6 cm. Small bilateral pleural effusions are present. Some mild compressive and streak atelectasis within th e dependent portions of the lungs bilaterally. Lungs are otherwise clear. Limited CT section through the upper abdomen are unremarkable. IMPRESSIONS: 1. No acute pulmonary embolism. 2. Mild streak atelectasis bilateral lung bases. 3. Minimal bilateral pleural effusions.
[2017-02-06 16:23] LABS: Glucose,Whole Blood 208 mg/dL (75-99)
[2017-02-06] MEDS: amLODIPine 10 MG TAB PO SCH (16:46)
[2017-02-06] MEDS: LOSARTAN 50 MG TAB PO SCH (16:46)
[2017-02-06] MEDS: LEVOFLOXACIN 750MG-D5W PMX 750 MG in DEXTROSE/WATER 1 150ML.BAG IVPB SCH (17:20)
[2017-02-06] MEDS: BUDESONIDE 0.5 MG/2 ML NEBU INHALATION SCH (19:20)
[2017-02-06 19:58] LABS: Glucose,Whole Blood 254 mg/dL (75-99)
[2017-02-06] MEDS: INSULIN GLARGINE 100 UNIT/ML 10 ML VIAL SQ SCH (21:01)
[2017-02-06 22:01] LABS: Glucose,Whole Blood 277 mg/dL (75-99)
[2017-02-06] MEDS ORDERED: INSULIN LISPRO (humaLOG) 300 UNIT/3 ML VIAL SQ ONE (22:20)
[2017-02-06 23:39] LABS: Glucose,Whole Blood 245 mg/dL (75-99)
[2017-02-07] MEDS: LORazepam 2 MG/ML SYRINGE IV PRN (02:20)
[2017-02-07] MEDS: MORPHINE SULFATE 4 MG/ML SYRINGE IV PRN ×3 (02:20→13:26)
[2017-02-07 03:03] LABS: Glucose,Whole Blood 235 mg/dL (75-99)
[2017-02-07] MEDS: INSULIN LISPRO (humaLOG) 300 UNIT/3 ML VIAL SQ SCH ×3 (03:03→13:06)
[2017-02-07] MEDS: IPRATROPIUM-ALBUTEROL 3 ML NEB INHALATION SCH ×5 (03:30→20:21)
[2017-02-07] MEDS: PROPOFOL 1,000 MG/100 ML VIAL IV SCH ×4 (03:49→13:51)
[2017-02-07 04:39] LABS: Anisocytosis Slight; Basophils % (A) 0 %; CH 26.7; CHCM 30.7; Eosinophils # (A) 0.1 k/uL (0-0.7); Eosinophils % (A) 1 %; HCT 36.6 % (34.0-46.0); HDW 2.42; HGB 11.4 gm/dL (11.4-16.0); Hypochromasia Slight; Luc # (Auto) 0.06; Luc % (Auto) 0; Lymphocytes # (A) 0.8 k/uL (1.0-4.8); Lymphocytes % (A) 6 %; MCH 27.3 pg (25.0-35.0); MCHC 31.2 g/dL (31.0-37.0); MCV 87.4 fL (80.0-100.0); Monocytes # (A) 0.7 k/uL (0-1.0); Monocytes % (A) 5 %; Neutrophils # (A) 12.1 k/uL (1.3-7.7); Neutrophils % (A) 88 %; RBC 4.19 m/uL (3.80-5.40); RDW 16.8 % (11.5-15.5); WBC 13.7 k/uL (3.8-10.6); WBC (Perox) 13.76
[2017-02-07 04:57] LABS: Anion Gap 7 mmol/L; Blood Urea Nitrogen 14 mg/dL (7-17); Calcium 9.2 mg/dL (8.4-10.2); Carbon Dioxide 22 mmol/L (22-30); Chloride 112 mmol/L (98-107); Glucose 275 mg/dL (74-99); Magnesium 2.1 mg/dL (1.6-2.3); Non-African American GFR(MDRD) >60 (>60 ml/min/1.73 sqM); Potassium 5.1 mmol/L (3.5-5.1); Sodium 141 mmol/L (137-145)
[2017-02-07 05:30] LABS: ABG Base Excess -1.9 mmol/L; ABG HCO3 22 mmol/L (21-25); ABG PCO2 39 mmHg (35-45); ABG PH 7.38 (7.35-7.45); ABG PO2 153 mmHg (83-108); ABG TCO2 24 mmol/L (19-24)
[2017-02-07] MEDS: methylPREDNISolone SOD SUCCI 125 MG/2 ML VIAL IV SCH ×2 (06:23→13:05)
[2017-02-07] MEDS: BUDESONIDE 0.5 MG/2 ML NEBU INHALATION SCH ×2 (07:33→20:21)
[2017-02-07 08:16] LABS: Glucose,Whole Blood 293 mg/dL (75-99)
[2017-02-07] MEDS: amLODIPine 10 MG TAB PO SCH (08:33)
[2017-02-07] MEDS: CHLORHEXIDINE GLUCONATE 15 ML CUP MUCOUS MEM SCH (08:33)
[2017-02-07] MEDS: PANTOPRAZOLE 40 MG/10 ML VIAL IV SCH (08:34)
[2017-02-07] MEDS: LOSARTAN 50 MG TAB PO SCH (08:34)
[2017-02-07] MEDS: ENOXAPARIN 40 MG/0.4 ML SYRINGE SQ SCH (08:34)
[2017-02-07] MEDS: INSULIN GLARGINE 100 UNIT/ML 10 ML VIAL SQ SCH (08:35)
--- NOTE | 2017-02-07 08:36 | XR ---
EXAMINATION TYPE: XR chest 1V portable DATE OF EXAM: 02/07/2017 COMPARISON: Prior chest x-ray 02/06/2017 HISTORY: Intubated TECHNIQUE: Single frontal view of the chest is obtained. FINDINGS: Endotracheal tube, NG tube are overlying appropriate positions. Patient is rotated. Heart is enlarged. No evident pneumothorax or pleural effusion. There are overlying cardiac leads. Pulmonar y vascularity and elly not significantly changed. Interstitium may be less pronounced. IMPRESSION: Stable cardiomegaly. There may be some improvement in aeration, volume status.
[2017-02-07] MEDS: CEFEPIME 2 GM in SODIUM CHLORIDE 0.9% 50 ML IVPB SCH ×2 (08:38→20:52)
[2017-02-07] MEDS: SODIUM CHLORIDE 0.9% 1,000 ML IV SCH ×2 (09:05→12:55)
[2017-02-07] MEDS: ENALAPRILAT 1.25 MG/ML 1 ML VIAL IVP PRN ×2 (09:05→21:43)
[2017-02-07] MEDS ORDERED: INSULIN LISPRO (humaLOG) 300 UNIT/3 ML VIAL SQ ONE (09:08)
--- NOTE | 2017-02-07 10:28 | P.PN ---
Subjective 02/05/17- This is a 66-year-old female patient being seen examined and evaluated today in the intensive care unit. Apparently the patient was out shopping and other customers unknown to her notice the patient being in respiratory distress and called EMS. When EMS arrived the patient is in severe respiratory distress with pulse ox in the 80s. She was transported to [facility] and upon arrival she had oxygen saturating in the 50s. The patient was also nonresponsive. Patient was intubated in the emergency room and is adamantly admitted to the ICU on full respiratory support. EKG showed sinus tachycardia. Chest x-ray showed congestive heart failure and pulmonary vascular congestion with developing interstitial pulmonary edema and cardiomegaly. Patient's labs were reviewed on initial troponins was negative no repeat troponins were ordered , there was no lactic acid or d-dimer obtained in the emergency room. Of note this patient has had multiple admissions recently at [facility] where she has left [place] in the past. Patient has also been seen in the emergency room at [facility] where she refused to be admitted as well. Upon examination the patient is on mechanical ventilation with propofol for sedation currently the mechanical ventilator settings are on assist control mode with a respiratory rate of 14, tidal volume of 450, FiO2 40% and a PEEP of 5. Currently the patient is on 40 mics of propofol. No vasopressors at this time. Patient is able to open eyes and move upper extremities. She does follow simple commands. 02/06/17- patient is being seen examined and evaluated today in the intensive care unit on rounds. Patient was trialed on a sedation holiday this morning the patient was able to wake up and could open and squint her eyes however she would not follow any commands. Her blood pressure went up to 232/134, she became tachycardic in the 120 to 130s, her respiratory rate was in the high 20s as well. Per the nursing staff the sedation holiday lasted approximately 45 minutes trying to get the patient to wake up however after heat her vital signs became unstable the put her back on sedation. Currently the patient is on assist control mode with a respiratory rate of 14 tidal volume of 450 FiO2 40% and a PEEP of 5. Currently on 50 g of propofol for sedation. She is also noted to be hyperglycemic and potentially may be switched over to an insulin drip per protocol upon repeat blood sugar. Of note the patient did have a elevated d-dimer of 3.92, a CTA was obtained no acute pulmonary embolism, mild streak atelectasis in the bilateral lung bases, and minimal bilateral pleural effusions were present. Objective - Vital Signs Vital signs: Vital Signs Temp 97.6 F 02/07/17 04:00 Pulse 94 02/07/17 09:00 Resp 22 02/07/17 09:00 BP 166/85 02/07/17 09:00 Pulse Ox 100 02/07/17 09:00 Intake & Output 02/06/17 02/07/17 02/07/17 18:59 06:59 18:59 Intake Total 0249.214 9435.256 580 Output Total 2440 1805 420 Balance -661.456 196.256 160 Weight 106.7 kg 106.2 kg 106.2 kg Intake: IV 1200 1250 100 Cefepime 2 gm In Sodium 50 Chloride 0.9% 50 ml @ 100 mls/hr IVPB ONCE STA Rx# :[id number] Sodium Chloride 0.9% 1, 1200 1200 100 000 ml @ 100 mls/hr IV . Q10H STA Rx#:[id number] Intake, IV Titration 438.544 191.256 300 Amount Cefepime 2 gm In Sodium 100 Chloride 0.9% 50 ml @ 100 mls/hr IVPB Q12HR RAISA Rx #:[id number] Levofloxacin 750Mg-D5w 100 Pmx 750 mg In Dextrose/ Water 1 150ml.bag @ 100 mls/hr IVPB Q24H RAISA Rx#: [id number] Propofol 1,000 mg In 100 338.544 191.256 ml @ Titrate IV .Q0M RAISA Rx#:[id number] Sodium Chloride 0.9% 1, 200 000 ml @ 100 mls/hr IV . Q10H RAISA Rx#:[id number] Tube Feeding 80 470 180 Other 60 90 Output: Gastric Drainage 200 Urine 2240 1805 420 Other: Voiding Method Indwelling Catheter Indwelling Catheter - Exam GENERAL EXAM: On mechanical ventilation with propofol for sedation HEAD: Normocephalic. EYES: Normal reaction of pupils, equal size. NOSE: Clear with pink turbinates. THROAT: No erythema or exudates. Lips and tongue appear to be slightly edematous. ET and OG present NECK: No masses, no JVD. Thick CHEST: No chest wall deformity. LUNGS: Lungs noted to be coarse throughout Equal air entry with no crackles, wheeze, rhonchi or dullness. Bases diminished. InSync with mechanical ventilation CVS: S1 and S2 normal with no audible mumurs, regular rhythm. ABDOMEN: No hepatosplenomegaly, normal bowel sounds, no guarding or rigidity. EXTREMITIES: No edema noted, pedal pulses palpable. SKIN: No rashes CENTRAL NERVOUS SYSTEM: Currently on sedation - Labs CBC & Chem 7: 02/07/17 04:26 02/07/17 04:26 Labs: Abnormal Lab Results - Last 24 Hours (Table) 02/06/17 02/06/17 02/06/17 Range/Units 03:09 10:07 11:47 WBC (3.8-10.6) k/uL RDW (11.5-15.5) % Neutrophils # (1.3-7.7) k/uL Lymphocytes # (1.0-4.8) k/uL D-Dimer 3.92 H (<0.60) mg/L FEU ABG pO2 (83-108) mmHg ABG O2 Saturation (94-97) % Chloride (98-107) mmol/L Glucose (74-99) mg/dL POC Glucose (mg/dL) 213 H (75-99) mg/dL Hemoglobin A1c 9.6 H (4.2-6.1) % 02/06/17 02/06/17 02/06/17 Range/Units 16:21 19:56 21:58 WBC (3.8-10.6) k/uL RDW (11.5-15.5) % Neutrophils # (1.3-7.7) k/uL Lymphocytes # (1.0-4.8) k/uL D-Dimer (<0.60) mg/L FEU ABG pO2 (83-108) mmHg ABG O2 Saturation (94-97) % Chloride (98-107) mmol/L Glucose (74-99) mg/dL POC Glucose (mg/dL) 208 H 254 H 277 H (75-99) mg/dL Hemoglobin A1c (4.2-6.1) % 02/06/17 02/07/17 02/07/17 Range/Units 23:37 03:00 04:26 WBC 13.7 H (3.8-10.6) k/uL RDW 16.8 H (11.5-15.5) % Neutrophils # 12.1 H (1.3-7.7) k/uL Lymphocytes # 0.8 L (1.0-4.8) k/uL D-Dimer (<0.60) mg/L FEU ABG pO2 (83-108) mmHg ABG O2 Saturation (94-97) % Chloride (98-107) mmol/L Glucose (74-99) mg/dL POC Glucose (mg/dL) 245 H 235 H (75-99) mg/dL Hemoglobin A1c (4.2-6.1) % 02/07/17 02/07/17 02/07/17 Range/Units 04:26 04:54 08:14 WBC (3.8-10.6) k/uL RDW (11.5-15.5) % Neutrophils # (1.3-7.7) k/uL Lymphocytes # (1.0-4.8) k/uL D-Dimer (<0.60) mg/L FEU ABG pO2 153 H (83-108) mmHg ABG O2 Saturation 99.0 H (94-97) % Chloride 112 H (98-107) mmol/L Glucose 275 H (74-99) mg/dL POC Glucose (mg/dL) 293 H (75-99) mg/dL Hemoglobin A1c (4.2-6.1) % Microbiology - Last 24 Hours (Table) 02/05/17 16:30 Gram Stain - Preliminary Sputum Sputum Culture - Preliminary Assessment and Plan Plan: Assessment Probable sepsis, we will obtain cultures. Acute hypoxic respiratory failure Acute exacerbation of COPD Probable Community-acquired pneumonia Pulmonary edema Hyperlipidemia History of diabetes mellitus History of hypertension Plan Labs and blood gases as well as x-rays have been reviewed. CTA results have been reviewed. Patient also had an echo however those results are not readily available at this time. Patient should remain on mechanical ventilation for today. We will trial a sedation holiday tomorrow morning as well as CPAP of 5/5 , ABGs to be from 30 minutes after CPAP was initiated. Consult neurology. Medications have been reviewed and will be continued as ordered. Cultures are in progress. Continue with tube feedings. Continue with pulmonary hygiene, coughing and deep breathing exercises, and supportive care. Supplemental oxygen to maintain oxygen saturations of 92% or better. Continue nebulizer treatments. GI and DVT prophylaxis. We will continue to monitor labs/results and adjust treatment as necessary. Further recommendations pending. I performed an examination of the patient and discussed their management with the nurse practitioner. I have reviewed the nurse practitioner's note and agree with the documented findings and plan of care.
--- NOTE | 2017-02-07 12:28 | ECHOF ---
Referral Reason:pulmonary edema MEASUREMENTS -------- HEIGHT: 160.0 cm WEIGHT: 106.1 kg BP: 145/85 RVIDd: 2.7 cm (< 3.3) IVSd: 1.3 cm (0.6 - 1.1) LVIDd: 3.1 cm (3.9 - 5.3) LVPWd: 1.3 cm (0.6 - 1.1) IVSs: 1.5 cm LVIDs: 2.2 cm LVPWs: 1.5 cm LA Diam: 3.0 cm (2.7 - 3.8) Ao Diam: 1.9 cm (2.0 - 3.7) AV Cusp: 1.3 cm (1.5 - 2.6) LA Diam: 3.1 cm (2.7 - 3.8) MV EXCURSION: 12.039 mm (> 18.000) MV EF SLOPE: 56 mm/s (70 - 150) EPSS: 1.1 cm MV E Justen: 0.84 m/s MV DecT: 305 ms MV A Justen: 1.04 m/s MV E/A Ratio: 0.80 RAP: 5.00 mmHg RVSP: 30.49 mmHg FINDINGS -------- Sinus rhythm. This was a technically adequate study. There is moderate concentric left ventricular hypertrophy. Overall left ventricular systolic function is normal with, an EF between 55 - 60 %. The right ventricle is normal in size. The left atrial size is normal. The right atrial size is normal. There is mild aortic valve sclerosis. There is [id number] aortic regurgitation. Mild mitral annular calcification present. Mild mitral regurgitation is present. Mild tricuspid regurgitation present. There is no evidence of pulmonary hypertension. The right ventricular systolic pressure, as measured by Doppler, is 30.49mmHg. There is no pulmonic regurgitation present. The aortic root size is normal. There is no pericardial effusion. CONCLUSIONS -------- 1. There is moderate concentric left ventricular hypertrophy. 2. There is no pulmonic regurgitation present. 3. Overall left ventricular systolic function is normal with, an EF between 55 - 60 %. 4. There is mild aortic valve sclerosis. 5. There is [id number] aortic regurgitation. 6. Mild mitral annular calcification present. 7. Mild mitral regurgitation is present. 8. Mild tricuspid regurgitation present. 9. There is no evidence of pulmonary hypertension. 10. The right ventricular systolic pressure, as measured by Doppler, is 30.49mmHg. RHINOLOGIST: Rebekah Barrera RDCS
[2017-02-07] MEDS ORDERED: INSULIN REGULAR BOLUS (FROM DRIP BAG) IV PRN (12:35)
[2017-02-07 12:44] LABS: Glucose,Whole Blood 297 mg/dL (75-99)
[2017-02-07] MEDS ORDERED: INSULIN REGULAR 100 UNIT in SODIUM CHLORIDE 0.9% 100 ML IV SCH (12:45)
[2017-02-07 14:18] LABS: Glucose,Whole Blood 276 mg/dL (75-99)
[2017-02-07 15:37] LABS: Glucose,Whole Blood 196 mg/dL (75-99)
--- NOTE | 2017-02-07 16:12 | P.CONS ---
History of Present Illness - Reason for Consult Consult date: 02/07/17 altered mental status Requesting physician: Tj Espinoza - Chief Complaint altered mental status - History of Present Illness This is a 66-year-old -[place] female being evaluated by the neurology service for altered mental status. She is currently sedated and intubated in the ICU. She has a significant history of diabetes, hypertension, COPD. She had been at the [facility] ER for some breathing difficulties. She apparently has a history of admissions requiring ICU care with intubation. She came to the [facility] emergency room via EMS and was intubated soon afterward. She is being treated for urinary tract infection, pneumonia. Review of Systems ROS unobtainable: due to endotracheal tube, due to mental status Past Medical History Past Medical History: Diabetes Mellitus, Hypertension Additional Past Medical History / Comment(s): SOB, DKA History of Any Multi-Drug Resistant Organisms: Unobtainable Past Surgical History: Tonsillectomy Additional Past Surgical History / Comment(s): endoscopy to repair adhesions, left knee arthrogram Past Psychological History: Unable to Obtain Smoking Status: Never smoker Medications and Allergies Home Medications Medication Instructions Recorded Confirmed Type Albuterol Inhaler [Ventolin Hfa 2 puff INHALATION RT-Q4H PRN 02/05/17 02/05/17 History Inhaler] Albuterol Nebulized [Ventolin 2.5 mg INHALATION RT-TID 02/05/17 02/05/17 History Nebulized] Aspirin EC [Ecotrin Low Dose] 81 mg PO DAILY 02/05/17 02/05/17 History Atorvastatin [Lipitor] 10 mg PO DAILY 02/05/17 02/05/17 History Budesonide [Pulmicort] 2 mg INHALATION RT-QID 02/05/17 02/05/17 History Insulin Aspart [NovoLOG] See Protocol SQ AC-TID MDD 90 units 02/05/17 02/05/17 History Insulin Glargine [Lantus] 56 unit SQ HS 02/05/17 02/05/17 History Labetalol HCl [Trandate] 300 mg PO BID 02/05/17 02/05/17 History Losartan Potassium [Cozaar] 100 mg PO DAILY 02/05/17 02/05/17 History amLODIPine BESYLATE [Norvasc] 10 mg PO DAILY 02/05/17 02/05/17 History traMADol HCL [Ultram] 50 mg PO Q6HR PRN 02/05/17 02/05/17 History Allergies Allergy/AdvReac Type Severity Reaction Status Date / Time hydralazine Allergy Anaphylaxis Verified 02/05/17 16:10 Penicillins Allergy Anaphylaxis Verified 02/05/17 16:10 metformin AdvReac Unknown Verified 02/05/17 16:10 Physical Exam Vitals: Vital Signs Temp Pulse Pulse Pulse Resp BP Pulse Ox 02/07/17 15:00 98 21 164/86 99 02/07/17 14:00 89 14 143/76 99 02/07/17 13:00 85 14 148/84 100 02/07/17 12:00 98.1 F 78 14 165/88 99 02/07/17 11:49 78 02/07/17 11:21 89 02/07/17 11:00 96 14 166/85 100 02/07/17 10:00 92 18 166/85 97 02/07/17 09:00 94 14 166/85 100 02/07/17 08:00 97.8 F 78 14 164/91 100 02/07/17 07:59 79 02/07/17 07:40 81 02/07/17 07:00 65 15 154/85 100 02/07/17 06:00 62 14 140/83 100 02/07/17 05:00 60 14 138/77 100 02/07/17 04:00 97.6 F 66 14 148/81 100 02/07/17 03:31 72 02/07/17 03:17 77 02/07/17 03:00 59 L 14 153/86 100 02/07/17 02:00 63 14 157/90 100 02/07/17 01:00 63 14 160/87 100 02/07/17 00:00 97.5 F L 66 14 159/87 100 02/06/17 23:58 66 02/06/17 23:39 70 02/06/17 23:00 63 14 155/85 100 02/06/17 22:00 62 14 154/85 100 02/06/17 21:00 67 14 158/87 100 02/06/17 20:00 97.5 F L 69 14 169/91 100 02/06/17 19:35 72 02/06/17 19:20 70 02/06/17 19:00 64 14 165/91 100 02/06/17 18:00 67 13 157/85 100 02/06/17 17:00 65 13 158/85 100 02/06/17 16:00 97.8 F 68 73 73 14 164/86 99 Intake and Output 02/07/17 02/07/17 02/07/17 06:59 14:59 22:59 Intake Total 8553.392 3729.665 19.292 Output Total 1340 830 100 Balance -88.744 245.665 -80.708 Intake: IV 800 100 Sodium Chloride 0.9% 1, 800 100 000 ml @ 100 mls/hr IV . Q10H [facility] Rx#:[id number] Intake, IV Titration 91.256 561.665 19.292 Amount Cefepime 2 gm In Sodium 100 Chloride 0.9% 50 ml @ 100 mls/hr IVPB Q12HR [facility] Rx #:[id number] Insulin Regular 100 unit 31.665 9.292 In Sodium Chloride 0.9% 100 ml @ Per Protocol IV .Q0M [facility] Rx#:[id number] Propofol 1,000 mg In 100 91.256 200 ml @ Titrate IV .Q0M [facility] Rx#:[id number] Sodium Chloride 0.9% 1, 230 10 000 ml @ 10 mls/hr IV . Q24H [facility] Rx#:[id number] Tube Feeding 300 384 0 Other 60 30 Output: Urine 1340 830 100 Other: Voiding Method Indwelling Catheter Indwelling Catheter Weight 106.2 kg 106.2 kg Patient Weight 02/08/17 06:59 Weight 106.2 kg - Constitutional General appearance: obese - EENT Eyes: no abnormal pupil, PERRLA, no ptosis - Neck Neck: no rigidity - Respiratory Respiratory: negative: prolonged expiration, prolonged inspiration - Cardiovascular Rhythm: irregularly irregular - Gastrointestinal General gastrointestinal: no distended, no rigid - Neurologic The patient is intubated and sedated. Corneal reflexes intact. There is no response to painful stimuli of the upper or lower extremities. No response to Babinski. Results CBC & Chem 7: 02/07/17 04:26 02/07/17 04:26 Labs: Abnormal Lab Results - Last 24 Hours (Table) 02/06/17 02/06/17 02/06/17 Range/Units 16:21 19:56 21:58 WBC (3.8-10.6) k/uL RDW (11.5-15.5) % Neutrophils # (1.3-7.7) k/uL Lymphocytes # (1.0-4.8) k/uL ABG pO2 (83-108) mmHg ABG O2 Saturation (94-97) % Chloride (98-107) mmol/L Glucose (74-99) mg/dL POC Glucose (mg/dL) 208 H 254 H 277 H (75-99) mg/dL 02/06/17 02/07/17 02/07/17 Range/Units 23:37 03:00 04:26 WBC 13.7 H (3.8-10.6) k/uL RDW 16.8 H (11.5-15.5) % Neutrophils # 12.1 H (1.3-7.7) k/uL Lymphocytes # 0.8 L (1.0-4.8) k/uL ABG pO2 (83-108) mmHg ABG O2 Saturation (94-97) % Chloride (98-107) mmol/L Glucose (74-99) mg/dL POC Glucose (mg/dL) 245 H 235 H (75-99) mg/dL 02/07/17 02/07/17 02/07/17 Range/Units 04:26 04:54 08:14 WBC (3.8-10.6) k/uL RDW (11.5-15.5) % Neutrophils # (1.3-7.7) k/uL Lymphocytes # (1.0-4.8) k/uL ABG pO2 153 H (83-108) mmHg ABG O2 Saturation 99.0 H (94-97) % Chloride 112 H (98-107) mmol/L Glucose 275 H (74-99) mg/dL POC Glucose (mg/dL) 293 H (75-99) mg/dL 02/07/17 02/07/17 02/07/17 Range/Units 12:31 14:16 15:35 WBC (3.8-10.6) k/uL RDW (11.5-15.5) % Neutrophils # (1.3-7.7) k/uL Lymphocytes # (1.0-4.8) k/uL ABG pO2 (83-108) mmHg ABG O2 Saturation (94-97) % Chloride (98-107) mmol/L Glucose (74-99) mg/dL POC Glucose (mg/dL) 297 H 276 H 196 H (75-99) mg/dL Microbiology - Last 24 Hours (Table) 02/05/17 16:30 Gram Stain - Preliminary Sputum Sputum Culture - Preliminary 02/06/17 08:38 Blood Culture - Preliminary Blood No Growth after 24 hours 02/06/17 08:45 Blood Culture - Preliminary Blood No Growth after 24 hours Assessment and Plan (1) Septic encephalopathy Status: Acute (2) Anoxic encephalopathy Status: Acute (3) Metabolic encephalopathy Status: Acute (4) Acute respiratory failure Status: Acute (5) Community acquired pneumonia Status: Acute (6) Congestive heart failure Status: Chronic (7) Hypoxia Status: Acute (8) Diabetes Status: Chronic Plan: The patient remains intubated and sedated in the ICU. Continue supportive care , and treatment for her underlying infections and metabolic processes. We'll continue to follow and evaluate. We will obtain an EEG and head CT when able. I have reviewed the history and physical on the above patient. I have reviewed the above note, and agree.
[2017-02-07] MEDS: methylPREDNISolone SOD SUCCI 40 MG/ML 1 ML VIAL IV SCH (16:23)
[2017-02-07 16:28] LABS: Glucose,Whole Blood 191 mg/dL (75-99)
[2017-02-07] MEDS ORDERED: METOPROLOL TARTRATE 5 MG/5 ML VIAL IVP SCH (17:00)
--- NOTE | 2017-02-07 17:13 | CT ---
EXAMINATION TYPE: CT brain wo con DATE OF EXAM: 02/07/2017 COMPARISON: NONE HISTORY: Altered mental status. CT DLP: 900.50 mGycm Automated exposure control for dose reduction was used. FINDINGS: There is no mass effect nor midline shift. Ventricles have normal size. Calvarium is intact. There is no sign of intracranial hemorrhage. IMPRESSION: NEGATIVE CT SCAN OF THE BRAIN.
[2017-02-07 17:24] LABS: Glucose,Whole Blood 167 mg/dL (75-99)
[2017-02-07] MEDS: LEVOFLOXACIN 750MG-D5W PMX 750 MG in DEXTROSE/WATER 1 150ML.BAG IVPB SCH (17:54)
[2017-02-07 18:27] LABS: Glucose,Whole Blood 160 mg/dL (75-99)
[2017-02-07] MEDS: ASPIRIN 325 MG TAB PO SCH (18:28)
[2017-02-07 19:19] LABS: Glucose,Whole Blood 195 mg/dL (75-99)
[2017-02-07 20:03] LABS: Glucose,Whole Blood 148 mg/dL (75-99)
[2017-02-07] MEDS: METOPROLOL TARTRATE 25 MG TAB PO SCH (20:55)
[2017-02-07 21:01] LABS: Glucose,Whole Blood 141 mg/dL (75-99)
[2017-02-07 22:15] LABS: Glucose,Whole Blood 158 mg/dL (75-99)
[2017-02-07 22:49] LABS: Hemoglobin A1C 9.7 % (4.2-6.1)
--- NOTE | 2017-02-07 23:05 | P.PN ---
Progress Note - Text As by the nurse to evaluate this patient has becomes very anxious and agitated continued to have high blood pressure patient of note that has self extubated herself placed on oxygen with that status remained stable a computed tomography scan of the head on stat basis was performed which was normal patient continued to have a high blood pressure requiring as needed IV Vasotec I've initiated patient on IV Lopressor 5 mg every 12 and S patient has passed the swallow evaluation not being switched to 25 mg by mouth twice a day patient is calm comfortable after self extubation on 3 L oxygen sats and 90s heart rate ranging from 100 120, blood pressure later is 175/80 she is arousable and opens eyes but prefer not to respond her exam is not much change good bilateral air entry is present heart regular rate and rhythm abdomen soft extremities trace edema will monitor observation closely in ICU no plans for intubation stroke CVA is less likely overall patient appears to uncontrolled malignant hypertension and pulmonary edema related to that responding with current therapy fairly well. Her dictation critical care time spent 35 minutes
[2017-02-07 23:06] LABS: Glucose,Whole Blood 141 mg/dL (75-99)
[2017-02-08 00:15] LABS: Glucose,Whole Blood 158 mg/dL (75-99)
[2017-02-08] MEDS: IPRATROPIUM-ALBUTEROL 3 ML NEB INHALATION SCH ×5 (00:24→19:00)
[2017-02-08] MEDS: methylPREDNISolone SOD SUCCI 40 MG/ML 1 ML VIAL IV SCH ×2 (00:37→08:29)
[2017-02-08 01:35] LABS: Glucose,Whole Blood 147 mg/dL (75-99)
[2017-02-08] MEDS ORDERED: IPRATROPIUM-ALBUTEROL 3 ML NEB INHALATION PRN (01:37)
[2017-02-08 02:30] LABS: Glucose,Whole Blood 152 mg/dL (75-99)
[2017-02-08 03:24] LABS: Glucose,Whole Blood 151 mg/dL (75-99)
[2017-02-08 04:12] LABS: Glucose,Whole Blood 162 mg/dL (75-99)
[2017-02-08 04:38] LABS: Anisocytosis Slight; Basophils % (A) 0 %; CH 27.1; CHCM 32.4; Eosinophils # (A) 0.1 k/uL (0-0.7); Eosinophils % (A) 0 %; HCT 34.6 % (34.0-46.0); HDW 2.43; HGB 10.9 gm/dL (11.4-16.0); Luc # (Auto) 0.07; Luc % (Auto) 0; Lymphocytes # (A) 0.8 k/uL (1.0-4.8); Lymphocytes % (A) 4 %; MCH 26.6 pg (25.0-35.0); MCHC 31.5 g/dL (31.0-37.0); MCV 84.2 fL (80.0-100.0); Mean Platelet Volume 9.2; Monocytes % (A) 5 %; Neutrophils # (A) 16.9 k/uL (1.3-7.7); Neutrophils % (A) 90 %; RBC 4.11 m/uL (3.80-5.40); RDW 16.9 % (11.5-15.5); WBC 18.7 k/uL (3.8-10.6); WBC (Perox) 19.11
[2017-02-08 04:49] LABS: Anion Gap 10 mmol/L; Blood Urea Nitrogen 17 mg/dL (7-17); Calcium 9.4 mg/dL (8.4-10.2); Carbon Dioxide 27 mmol/L (22-30); Chloride 108 mmol/L (98-107); Glucose 166 mg/dL (74-99); Magnesium 1.9 mg/dL (1.6-2.3); Non-African American GFR(MDRD) >60 (>60 ml/min/1.73 sqM); Phosphorous 4.4 mg/dL (2.5-4.5); Potassium 3.7 mmol/L (3.5-5.1); Sodium 145 mmol/L (137-145)
[2017-02-08 05:23] LABS: Glucose,Whole Blood 160 mg/dL (75-99)
[2017-02-08 05:59] LABS: Glucose,Whole Blood 176 mg/dL (75-99)
[2017-02-08] MEDS: ENALAPRILAT 1.25 MG/ML 1 ML VIAL IVP PRN (06:31)
[2017-02-08] MEDS ORDERED: Potassium Replacement Protocol 1 EACH MISC MISCELLANE PRN (06:35)
[2017-02-08] MEDS ORDERED: POTASSIUM CHLORIDE ER 20 MEQ TAB.ER PO SCH (07:00)
[2017-02-08 07:13] LABS: Glucose,Whole Blood 156 mg/dL (75-99)
[2017-02-08] MEDS: MAGNESIUM SULFATE-D5W PMX 1 GM in DEXTROSE/WATER 1 100ML.BAG IVPB SCH ×2 (07:16→08:29)
--- NOTE | 2017-02-08 08:03 | PN ---
Patient continued to be on full vent support. Was weaned off yesterday where she was following commands but became extremely agitated and currently on full sedation. Patient still on full vent support requiring minimal amount of oxygen with PEEP of 5. PHYSICAL EXAMINATION: Vital signs reviewed and are stable. LUNGS: Coarse breathing sounds bilaterally. HEART: S1, S2. ABDOMEN: Soft, nontender, positive bowel sounds in all 4 quadrants. LOWER EXTREMITY: No edema. PSYCH: Sedated. IMAGING: Labs reviewed this morning. Glucose fluctuating between 191 and 297. Cultures are still pending negative. ASSESSMENT AND PLAN: 1. Acute respiratory failure requiring full mechanical support with ventilation. Will continue with current recommendation and follow up with critical care recommendation regarding weaning off as tolerated. 2. History of advanced COPD. Will continue breathing treatment and wean her off steroids as tolerated. 3. Hyperglycemia. Will continue with insulin sliding scale, discussed with the nursing staff this morning. 4. Morbid obesity, consultation regarding weight loss once possible. 5. Hypertension, on fair control, continue current management. The prognosis remains guarded. MTDD
[2017-02-08 08:05] LABS: Glucose,Whole Blood 167 mg/dL (75-99)
[2017-02-08] MEDS: BUDESONIDE 0.5 MG/2 ML NEBU INHALATION SCH (08:13)
[2017-02-08] MEDS: ENOXAPARIN 40 MG/0.4 ML SYRINGE SQ SCH (08:30)
[2017-02-08] MEDS: ASPIRIN 325 MG TAB PO SCH (08:30)
[2017-02-08] MEDS: amLODIPine 10 MG TAB PO SCH (08:30)
[2017-02-08] MEDS: LOSARTAN 50 MG TAB PO SCH (08:30)
[2017-02-08] MEDS: METOPROLOL TARTRATE 25 MG TAB PO SCH ×2 (08:31→20:23)
[2017-02-08] MEDS: PANTOPRAZOLE 40 MG/10 ML VIAL IV SCH (08:31)
[2017-02-08 09:05] LABS: Glucose,Whole Blood 226 mg/dL (75-99)
[2017-02-08 10:05] LABS: Glucose,Whole Blood 300 mg/dL (75-99)
[2017-02-08] MEDS: CEFEPIME 2 GM in SODIUM CHLORIDE 0.9% 50 ML IVPB SCH (10:05)
[2017-02-08 11:18] LABS: Glucose,Whole Blood 245 mg/dL (75-99)
--- NOTE | 2017-02-08 12:18 | P.PN ---
Subjective Principal diagnosis: Altered mental status This is a 66-year-old -[place] female continuing to be evaluated by the neurology service for altered mental status. Since my last exam she has self extubated and is reportedly did doing well off the ventilator. She was able to undergo her CT of the brain which showed no acute intracranial abnormalities. At time of my examination she is about to start her EEG. She is resting comfortably in bed but drowsy. He is being watched for malignant hypertension. Objective - Vital Signs Vital signs: Vital Signs Temp 98.6 F 02/08/17 08:00 Pulse 95 02/08/17 12:00 Resp 18 02/08/17 12:00 BP 164/98 02/08/17 12:00 Pulse Ox 95 02/08/17 12:00 Intake & Output 02/07/17 02/08/17 02/08/17 18:59 06:59 18:59 Intake Total 1133.374 436.005 172.895 Output Total 1605 2360 975 Balance -471.626 -1923.995 -802.105 Weight 106.2 kg 104.7 kg Intake: IV 100 150 60 Cefepime 2 gm In Sodium 50 Chloride 0.9% 50 ml @ 100 mls/hr IVPB Q12HR [facility] Rx #:[id number] Sodium Chloride 0.9% 1, 100 60 000 ml @ 10 mls/hr IV . Q24H [facility] Rx#:[id number] Sodium Chloride 0.9% 1, 100 000 ml @ 100 mls/hr IV . Q10H [facility] Rx#:[id number] Intake, IV Titration 619.374 36.005 112.895 Amount Cefepime 2 gm In Sodium 100 Chloride 0.9% 50 ml @ 100 mls/hr IVPB Q12HR [facility] Rx #:[id number] Insulin Regular 100 unit 49.374 26.005 12.895 In Sodium Chloride 0.9% 100 ml @ Per Protocol IV .Q0M [facility] Rx#:[id number] Magnesium Sulfate-D5w Pmx 100 1 gm In Dextrose/Water 1 100ml.bag @ 100 mls/hr IVPB Q1H [facility] Rx#: [id number] Propofol 1,000 mg In 100 200 ml @ Titrate IV .Q0M [facility] Rx#:[id number] Sodium Chloride 0.9% 1, 270 10 000 ml @ 10 mls/hr IV . Q24H [facility] Rx#:[id number] Oral 250 Tube Feeding 384 Other 30 Output: Urine 1605 2360 975 Other: Voiding Method Indwelling Catheter Indwelling Catheter Indwelling Catheter - Constitutional General appearance: Present: no acute distress, obese - EENT EENT Comment(s): She has some exotropia of the left eye, which she indicates is not new. She denies any visual complaints Eyes: Present: PERRLA. Absent: abnormal pupil, EOMI, ptosis ENT: Present: hearing grossly normal - Neck Neck: Present: normal ROM. Absent: rigidity - Respiratory Respiratory: negative: prolonged expiration, prolonged inspiration - Cardiovascular Rhythm: regular - Gastrointestinal General gastrointestinal: Absent: distended, tenderness - Neurologic Neurologic Comment(s): The patient is awake and oriented to person and place. She is quite drowsy. She responds to simple commands. Media Manager strength is 4 out of 5 bilaterally. There is no facial asymmetry. Speech and language appear to be normal. There is no sensory deficit of the face, upper or lower extremities. There is no lateralizing weakness. - Labs CBC & Chem 7: 02/08/17 04:05 02/08/17 04:05 Labs: Abnormal Lab Results - Last 24 Hours (Table) 02/07/17 02/07/17 02/07/17 Range/Units 04:26 12:31 14:16 WBC (3.8-10.6) k/uL Hgb (11.4-16.0) gm/dL RDW (11.5-15.5) % Neutrophils # (1.3-7.7) k/uL Lymphocytes # (1.0-4.8) k/uL Chloride (98-107) mmol/L Glucose (74-99) mg/dL POC Glucose (mg/dL) 297 H 276 H (75-99) mg/dL Hemoglobin A1c 9.7 H (4.2-6.1) % 02/07/17 02/07/17 02/07/17 Range/Units 15:35 16:26 17:23 WBC (3.8-10.6) k/uL Hgb (11.4-16.0) gm/dL RDW (11.5-15.5) % Neutrophils # (1.3-7.7) k/uL Lymphocytes # (1.0-4.8) k/uL Chloride (98-107) mmol/L Glucose (74-99) mg/dL POC Glucose (mg/dL) 196 H 191 H 167 H (75-99) mg/dL Hemoglobin A1c (4.2-6.1) % 02/07/17 02/07/17 02/07/17 Range/Units 18:25 19:17 20:01 WBC (3.8-10.6) k/uL Hgb (11.4-16.0) gm/dL RDW (11.5-15.5) % Neutrophils # (1.3-7.7) k/uL Lymphocytes # (1.0-4.8) k/uL Chloride (98-107) mmol/L Glucose (74-99) mg/dL POC Glucose (mg/dL) 160 H 195 H 148 H (75-99) mg/dL Hemoglobin A1c (4.2-6.1) % 02/07/17 02/07/17 02/07/17 Range/Units 20:59 22:13 23:05 WBC (3.8-10.6) k/uL Hgb (11.4-16.0) gm/dL RDW (11.5-15.5) % Neutrophils # (1.3-7.7) k/uL Lymphocytes # (1.0-4.8) k/uL Chloride (98-107) mmol/L Glucose (74-99) mg/dL POC Glucose (mg/dL) 141 H 158 H 141 H (75-99) mg/dL Hemoglobin A1c (4.2-6.1) % 02/08/17 02/08/17 02/08/17 Range/Units 00:13 01:33 02:27 WBC (3.8-10.6) k/uL Hgb (11.4-16.0) gm/dL RDW (11.5-15.5) % Neutrophils # (1.3-7.7) k/uL Lymphocytes # (1.0-4.8) k/uL Chloride (98-107) mmol/L Glucose (74-99) mg/dL POC Glucose (mg/dL) 158 H 147 H 152 H (75-99) mg/dL Hemoglobin A1c (4.2-6.1) % 02/08/17 02/08/17 02/08/17 Range/Units 03:22 04:05 04:05 WBC 18.7 H (3.8-10.6) k/uL Hgb 10.9 L (11.4-16.0) gm/dL RDW 16.9 H (11.5-15.5) % Neutrophils # 16.9 H (1.3-7.7) k/uL Lymphocytes # 0.8 L (1.0-4.8) k/uL Chloride 108 H (98-107) mmol/L Glucose 166 H (74-99) mg/dL POC Glucose (mg/dL) 151 H (75-99) mg/dL Hemoglobin A1c (4.2-6.1) % 02/08/17 02/08/17 02/08/17 Range/Units 04:10 05:14 05:57 WBC (3.8-10.6) k/uL Hgb (11.4-16.0) gm/dL RDW (11.5-15.5) % Neutrophils # (1.3-7.7) k/uL Lymphocytes # (1.0-4.8) k/uL Chloride (98-107) mmol/L Glucose (74-99) mg/dL POC Glucose (mg/dL) 162 H 160 H 176 H (75-99) mg/dL Hemoglobin A1c (4.2-6.1) % 02/08/17 02/08/17 02/08/17 Range/Units 07:11 08:03 09:03 WBC (3.8-10.6) k/uL Hgb (11.4-16.0) gm/dL RDW (11.5-15.5) % Neutrophils # (1.3-7.7) k/uL Lymphocytes # (1.0-4.8) k/uL Chloride (98-107) mmol/L Glucose (74-99) mg/dL POC Glucose (mg/dL) 156 H 167 H 226 H (75-99) mg/dL Hemoglobin A1c (4.2-6.1) % 02/08/17 02/08/17 Range/Units 10:03 11:16 WBC (3.8-10.6) k/uL Hgb (11.4-16.0) gm/dL RDW (11.5-15.5) % Neutrophils # (1.3-7.7) k/uL Lymphocytes # (1.0-4.8) k/uL Chloride (98-107) mmol/L Glucose (74-99) mg/dL POC Glucose (mg/dL) 300 H 245 H (75-99) mg/dL Hemoglobin A1c (4.2-6.1) % Microbiology - Last 24 Hours (Table) 02/06/17 08:38 Blood Culture - Preliminary Blood No Growth after 48 hours 02/06/17 08:45 Blood Culture - Preliminary Blood No Growth after 48 hours 02/05/17 16:30 Gram Stain - Final Sputum Sputum Culture - Final Assessment and Plan (1) Septic encephalopathy Status: Acute (2) Metabolic encephalopathy Status: Acute (3) Acute respiratory failure Status: Acute (4) Community acquired pneumonia Status: Acute (5) Congestive heart failure Status: Chronic (6) Hypoxia Status: Acute (7) Diabetes Status: Chronic Plan: The patient remains in the ICU, but has self extubated and seems to be stable. At the time my exam she is just starting her EEG. I'll any cerebrovascular etiology at this point. Continue supportive care, and treatment for her underlying infections and metabolic processes. We'll continue to follow and evaluate. We will make further recommendations based on the above study. I have reviewed the history and physical on the above patient. I have reviewed the above note, and agree.
[2017-02-08 12:52] LABS: Glucose,Whole Blood 253 mg/dL (75-99)
[2017-02-08] MEDS: INSULIN LISPRO (humaLOG) 300 UNIT/3 ML VIAL SQ SCH ×5 (12:54→21:58)
--- NOTE | 2017-02-08 15:38 | P.PN ---
Subjective This is a 66-year-old -[place] female patient of Dr. Pizano with past medical history of diabetes, hypertension, possible COPD but nurse relates the patient has no history of smoking. Patient apparently was at [facility] in the ER and was discharged home and then came into [facility] emergency center by EMS for acute respiratory distress on nonrebreather and unresponsive. Pulse ox was 54 and patient was intubated and placed on mechanical ventilation. Chest x-ray showed correlate for CHF and pulmonary vascular congestion and developing pulmonary edema, cardiomegaly. Repeat chest x-ray this morning addressed ET tube to be pulled back 2 cm. Patient was started on DuoNeb treatments every 4 hours, cefepime 1 dose and continued on Levaquin, IV Solu-Medrol and admitted to the intensive care unit with consult to Dr. Norwood. Sputum culture is in progress. Tidal volume 450, FiO2 40 and PEEP of 5. NG tube is to suction at this time with plan to start tube . 02/08: Patient apparently exited herself last night, she is currently more awake and more alert today she denies any chest pain or any shortness breath, she had an episode of hemoptysis according to her, she denies any headache at this point in time she is currently getting ready to have an EEG done that was ordered by the neurology service, she has no abdominal pain, nausea, vomiting, she has no muscle weakness. Objective - Vital Signs Vital signs: Vital Signs Temp 99.1 F 02/08/17 04:00 Pulse 89 02/08/17 07:00 Resp 18 02/08/17 07:00 BP 180/91 02/08/17 07:00 Pulse Ox 94 L 02/08/17 07:00 Intake & Output 02/07/17 02/08/17 02/08/17 18:59 06:59 18:59 Intake Total 1133.374 436.005 13.367 Output Total 1605 2360 150 Balance -471.626 -1923.995 -136.633 Weight 106.2 kg 104.7 kg Intake: IV 100 150 10 Cefepime 2 gm In Sodium 50 Chloride 0.9% 50 ml @ 100 mls/hr IVPB Q12HR RAISA Rx #:[id number] Sodium Chloride 0.9% 1, 100 10 000 ml @ 10 mls/hr IV . Q24H RAISA Rx#:[id number] Sodium Chloride 0.9% 1, 100 000 ml @ 100 mls/hr IV . Q10H STA Rx#:[id number] Intake, IV Titration 619.374 36.005 3.367 Amount Cefepime 2 gm In Sodium 100 Chloride 0.9% 50 ml @ 100 mls/hr IVPB Q12HR RAISA Rx #:[id number] Insulin Regular 100 unit 49.374 26.005 3.367 In Sodium Chloride 0.9% 100 ml @ Per Protocol IV .Q0M RAISA Rx#:[id number] Propofol 1,000 mg In 100 200 ml @ Titrate IV .Q0M RAISA Rx#:[id number] Sodium Chloride 0.9% 1, 270 10 000 ml @ 10 mls/hr IV . Q24H RAISA Rx#:[id number] Oral 250 Tube Feeding 384 Other 30 Output: Urine 1605 2360 150 Other: Voiding Method Indwelling Catheter Indwelling Catheter - Constitutional General appearance: Present: average body habitus, no acute distress - EENT Eyes: Present: EOMI, PERRLA, normal appearance. Absent: ptosis, scleral icterus ENT: Present: hearing grossly normal, NA/AT, normal oropharynx. Absent: thrush Ears: bilateral: normal - Neck Neck: Present: normal ROM. Absent: lymphadenopathy, rigidity Carotids: bilateral: upstroke normal Thyroid: bilateral: normal size - Respiratory Respiratory: bilateral: diminished, dullness, rhonchi, wheezing, prolonged expiration - Cardiovascular Rhythm: regular Heart sounds: normal: S1, S2 Abnormal Heart Sounds: Present: systolic murmur. Absent: rub, click - Gastrointestinal General gastrointestinal: Present: normal bowel sounds, soft. Absent: tenderness, umbilical hernia, ventral hernia - Integumentary Integumentary: Present: normal, normal turgor - Neurologic Neurologic: Present: CNII-XII intact - Musculoskeletal Musculoskeletal: Present: generalized weakness, strength equal bilaterally - Psychiatric Psychiatric: Present: A&O x's 3, appropriate affect, intact judgment & insight - Labs CBC & Chem 7: 02/08/17 04:05 02/08/17 04:05 Labs: Abnormal Lab Results - Last 24 Hours (Table) 02/07/17 02/07/17 02/07/17 Range/Units 04:26 08:14 12:31 WBC (3.8-10.6) k/uL Hgb (11.4-16.0) gm/dL RDW (11.5-15.5) % Neutrophils # (1.3-7.7) k/uL Lymphocytes # (1.0-4.8) k/uL Chloride (98-107) mmol/L Glucose (74-99) mg/dL POC Glucose (mg/dL) 293 H 297 H (75-99) mg/dL Hemoglobin A1c 9.7 H (4.2-6.1) % 02/07/17 02/07/17 02/07/17 Range/Units 14:16 15:35 16:26 WBC (3.8-10.6) k/uL Hgb (11.4-16.0) gm/dL RDW (11.5-15.5) % Neutrophils # (1.3-7.7) k/uL Lymphocytes # (1.0-4.8) k/uL Chloride (98-107) mmol/L Glucose (74-99) mg/dL POC Glucose (mg/dL) 276 H 196 H 191 H (75-99) mg/dL Hemoglobin A1c (4.2-6.1) % 02/07/17 02/07/17 02/07/17 Range/Units 17:23 18:25 19:17 WBC (3.8-10.6) k/uL Hgb (11.4-16.0) gm/dL RDW (11.5-15.5) % Neutrophils # (1.3-7.7) k/uL Lymphocytes # (1.0-4.8) k/uL Chloride (98-107) mmol/L Glucose (74-99) mg/dL POC Glucose (mg/dL) 167 H 160 H 195 H (75-99) mg/dL Hemoglobin A1c (4.2-6.1) % 02/07/17 02/07/17 02/07/17 Range/Units 20:01 20:59 22:13 WBC (3.8-10.6) k/uL Hgb (11.4-16.0) gm/dL RDW (11.5-15.5) % Neutrophils # (1.3-7.7) k/uL Lymphocytes # (1.0-4.8) k/uL Chloride (98-107) mmol/L Glucose (74-99) mg/dL POC Glucose (mg/dL) 148 H 141 H 158 H (75-99) mg/dL Hemoglobin A1c (4.2-6.1) % 02/07/17 02/08/17 02/08/17 Range/Units 23:05 00:13 01:33 WBC (3.8-10.6) k/uL Hgb (11.4-16.0) gm/dL RDW (11.5-15.5) % Neutrophils # (1.3-7.7) k/uL Lymphocytes # (1.0-4.8) k/uL Chloride (98-107) mmol/L Glucose (74-99) mg/dL POC Glucose (mg/dL) 141 H 158 H 147 H (75-99) mg/dL Hemoglobin A1c (4.2-6.1) % 02/08/17 02/08/17 02/08/17 Range/Units 02:27 03:22 04:05 WBC 18.7 H (3.8-10.6) k/uL Hgb 10.9 L (11.4-16.0) gm/dL RDW 16.9 H (11.5-15.5) % Neutrophils # 16.9 H (1.3-7.7) k/uL Lymphocytes # 0.8 L (1.0-4.8) k/uL Chloride (98-107) mmol/L Glucose (74-99) mg/dL POC Glucose (mg/dL) 152 H 151 H (75-99) mg/dL Hemoglobin A1c (4.2-6.1) % 02/08/17 02/08/17 02/08/17 Range/Units 04:05 04:10 05:14 WBC (3.8-10.6) k/uL Hgb (11.4-16.0) gm/dL RDW (11.5-15.5) % Neutrophils # (1.3-7.7) k/uL Lymphocytes # (1.0-4.8) k/uL Chloride 108 H (98-107) mmol/L Glucose 166 H (74-99) mg/dL POC Glucose (mg/dL) 162 H 160 H (75-99) mg/dL Hemoglobin A1c (4.2-6.1) % 02/08/17 02/08/17 02/08/17 Range/Units 05:57 07:11 08:03 WBC (3.8-10.6) k/uL Hgb (11.4-16.0) gm/dL RDW (11.5-15.5) % Neutrophils # (1.3-7.7) k/uL Lymphocytes # (1.0-4.8) k/uL Chloride (98-107) mmol/L Glucose (74-99) mg/dL POC Glucose (mg/dL) 176 H 156 H 167 H (75-99) mg/dL Hemoglobin A1c (4.2-6.1) % Microbiology - Last 24 Hours (Table) 02/05/17 16:30 Gram Stain - Preliminary Sputum Sputum Culture - Preliminary 02/06/17 08:38 Blood Culture - Preliminary Blood No Growth after 24 hours 02/06/17 08:45 Blood Culture - Preliminary Blood No Growth after 24 hours Assessment and Plan Plan: Assessment and Plan Plan: 1. Acute hypoxic respiratory failure secondary to COPD exacerbation, pulmonary edema and possible pneumonia with signs of early sepsis/SIRS. Continue DuoNeb treatments every 4 hours, cephapirin, Levaquin, Solu-Medrol IV. Patient extubated herself last night and she is currently on room air. 2. Diabetes mellitus. Currently on insulin drip, discussed with the nursing staff to switch her to Humalog 15 units before each meal 3 times every day as the patient is ALLERGIC to Lantus. 3. History of hypertension. Patient is on Norvasc 10 mg daily, losartan 100 mg daily, labetalol 300 mg twice daily. Vasotec 1.25 mg IV every 6 hours as needed for systolic blood pressure greater than 160. 4. Hyperlipidemia. Patient is normally on Lipitor 10 mg daily. 5. DVT prophylaxis. Continue Lovenox 40 mg subcutaneously every 24 hours, continue bilateral knee-high ASHLEY hose. 6. Gastroesophageal prophylaxis. Continue Protonix 40 mg orally every 24 hours. 7. Transfer the patient to the medical floor if okay with pulmonary medicine.
[2017-02-08] MEDS: CHLORHEXIDINE GLUCONATE 15 ML CUP MUCOUS MEM SCH (16:23)
[2017-02-08] MEDS: SODIUM CHLORIDE 0.9% 1,000 ML IV SCH ×2 (16:24→21:58)
[2017-02-08 17:37] LABS: Glucose,Whole Blood 219 mg/dL (75-99)
--- NOTE | 2017-02-08 19:31 | PN ---
This is a 66 -year-old Black female who was admitted with a diagnosis of possible sepsis, acute hypoxemic respiratory failure, COPD, exacerbation, possibly community acquired pneumonia, pulmonary edema, hyperlipidemia, diabetes and hypertension. The patient looked good on the ventilator yesterday. I went ahead and put her on some PSV CPAP. She actually self- extubated herself yesterday, this was February. Currently not receiving any supplemental oxygen. She is getting IV at 0.9 at 100 mL an hour. She is getting insulin drip at 9 units an hour. Her primary doctor is Dr. Lyons. Used to have another physician out of the area. Looks pretty good. Can move out of the ICU later today. Dr. Mak is seeing her for hospital service. Vital signs include: Temperature 98.6. Heart rate 93, respiratory rate 22. Blood pressure 168/88. Mean 114. Saturations 95% on room air. Appears in no acute distress. HEENT examination is grossly unremarkable. Mucous membranes moist. No oral lesions. Neck is supple. Full range of motion. No adenopathy or thyromegaly. Cardiovascular examination reveals regular rhythm and rate. Lungs reveal a few scattered rhonchi. No wheezes or crackles. Abdomen is soft. Extremities intact. As mentioned she is just on a 0.9 IV at 100. She is getting no supplemental oxygen. Getting insulin drip at 9 units an hour. Lab data reviewed. White count 18.7, hemoglobin 10.9, hematocrit 34.6. Platelet count 202,000. Blood gases show PO2 153, PCO2 39, pH 7.38, this is from yesterday. Sodium 145, potassium 3.7, chloride 108. CO2 27, BUN and creatinine were 17 and 0.9. The rest of the labs look okay. Urine looks pretty clean. Chest x-ray from 02/07 shows it to be relatively normal. May be some very mild fluid overall but not real impressive by any means. ASSESSMENT: 1. Acute hypoxemia respiratory failure of unclear etiology. The prior diagnosis includes possible asthma/chronic obstructive pulmonary disease exacerbation versus anaphylaxis. 2. Possible sepsis. 3. Chronic obstructive pulmonary disease exacerbation. 4. Possible community acquired pneumonia, although based on current x-ray, likely not the case. 5. Pulmonary edema, resolved. 6. Hyperlipidemia. 7. Diabetes mellitus. 8. History of hypertension. PLAN: The patient is doing well. I will have the primary service deal with the hyperglycemia and the insulin drip. The plan will be to move her out of here later today. No additional recommendations are made. Medications are reviewed. Microbiology is all negative thus far. Labs and chest x-ray is reviewed. [place]
[2017-02-08] MEDS: LEVOFLOXACIN 750MG-D5W PMX 750 MG in DEXTROSE/WATER 1 150ML.BAG IVPB SCH (19:53)
[2017-02-08 21:30] LABS: Glucose,Whole Blood 217 mg/dL (75-99)
[2017-02-09 02:11] LABS: Glucose,Whole Blood 147 mg/dL (75-99)
[2017-02-09] MEDS: INSULIN LISPRO (humaLOG) 300 UNIT/3 ML VIAL SQ SCH ×8 (02:22→21:26)
[2017-02-09 07:38] LABS: Glucose,Whole Blood 163 mg/dL (75-99)
[2017-02-09] MEDS: IPRATROPIUM-ALBUTEROL 3 ML NEB INHALATION SCH ×4 (07:46→19:30)
[2017-02-09 09:12] LABS: Anisocytosis Slight; Basophils # (A) 0.1 k/uL (0-0.2); Basophils % (A) 0 %; CH 27.1; CHCM 32.7; Eosinophils # (A) 0.1 k/uL (0-0.7); Eosinophils % (A) 1 %; HCT 39.5 % (34.0-46.0); HGB 12.3 gm/dL (11.4-16.0); Luc # (Auto) 0.23; Luc % (Auto) 1; Lymphocytes # (A) 3.1 k/uL (1.0-4.8); Lymphocytes % (A) 18 %; MCH 26.1 pg (25.0-35.0); MCHC 31.2 g/dL (31.0-37.0); MCV 83.4 fL (80.0-100.0); Monocytes # (A) 1.6 k/uL (0-1.0); Monocytes % (A) 9 %; Neutrophils # (A) 11.9 k/uL (1.3-7.7); Neutrophils % (A) 70 %; RBC 4.74 m/uL (3.80-5.40); RDW 16.6 % (11.5-15.5); WBC (Perox) 17.09
[2017-02-09 09:27] LABS: Anion Gap 9 mmol/L; Blood Urea Nitrogen 16 mg/dL (7-17); Calcium 9.4 mg/dL (8.4-10.2); Carbon Dioxide 33 mmol/L (22-30); Chloride 98 mmol/L (98-107); Glucose 176 mg/dL (74-99); Magnesium 1.9 mg/dL (1.6-2.3); Non-African American GFR(MDRD) >60 (>60 ml/min/1.73 sqM); Phosphorous 3.4 mg/dL (2.5-4.5); Sodium 140 mmol/L (137-145)
[2017-02-09] MEDS: PANTOPRAZOLE 40 MG TABLET PO SCH (09:52)
[2017-02-09] MEDS: METOPROLOL TARTRATE 25 MG TAB PO SCH ×2 (09:52→21:25)
[2017-02-09] MEDS: LOSARTAN 50 MG TAB PO SCH (09:52)
[2017-02-09] MEDS: amLODIPine 10 MG TAB PO SCH (09:52)
[2017-02-09] MEDS: ASPIRIN 325 MG TAB PO SCH (09:52)
[2017-02-09] MEDS: ENOXAPARIN 40 MG/0.4 ML SYRINGE SQ SCH (09:53)
--- NOTE | 2017-02-09 10:33 | XR ---
EXAMINATION TYPE: XR chest 1V portable DATE OF EXAM: 02/09/2017 HISTORY: CHF. REFERENCE: Previous study dated 02/07/2017. FINDINGS: The heart is mildly prominent. There is mild vascular congestion without edema. Pleural spa vel are clear. IMPRESSION: 1. MILD CARDIOMEGALY. 2. MILD VENOUS CONGESTION.
[2017-02-09] MEDS ORDERED: Potassium Replacement Protocol 1 EACH MISC MISCELLANE PRN (10:44)
[2017-02-09 12:09] LABS: Glucose,Whole Blood 167 mg/dL (75-99)
--- NOTE | 2017-02-09 13:07 | P.PN ---
Subjective Principal diagnosis: Altered mental status This is a 66-year-old -[place] female continuing to be evaluated by the neurology service for altered mental status. Since my last exam she has been transferred off the ICU and is doing well. She was able to undergo her CT of the brain which showed no acute intracranial abnormalities. Her EEG has been performed and we are waiting data for interpretation.. She is resting comfortably in bed. Objective - Vital Signs Vital signs: Vital Signs Temp 97.9 F 02/09/17 07:00 Pulse 81 02/09/17 11:42 Resp 18 02/09/17 07:00 BP 147/89 02/09/17 07:00 Pulse Ox 96 02/09/17 07:00 Intake & Output 02/08/17 02/09/17 02/09/17 18:59 06:59 18:59 Intake Total 192.895 580 Output Total 1275 Balance -1082.105 580 Weight 95 kg Intake: IV 80 Sodium Chloride 0.9% 1, 80 000 ml @ 10 mls/hr IV . Q24H RAISA Rx#:[id number] Intake, IV Titration 112.895 Amount Insulin Regular 100 unit 12.895 In Sodium Chloride 0.9% 100 ml @ Per Protocol IV .Q0M RAISA Rx#:[id number] Magnesium Sulfate-D5w Pmx 100 1 gm In Dextrose/Water 1 100ml.bag @ 100 mls/hr IVPB Q1H RAISA Rx#: [id number] Oral 580 Output: Urine 1275 Other: Voiding Method Indwelling Catheter Toilet # Voids 1 - Constitutional General appearance: Present: cooperative, no acute distress, obese - EENT Eyes: Present: PERRLA. Absent: abnormal pupil, ptosis ENT: Present: hearing grossly normal - Neck Neck: Present: normal ROM. Absent: rigidity - Cardiovascular Rhythm: regular - Neurologic Neurologic Comment(s): She is alert awake and oriented 3. Speech-language are normal. There is no lateralizing weakness. There is no sensory deficit. There is no facial asymmetry. No tremors or seizure-like activities are seen. - Labs CBC & Chem 7: 02/09/17 08:29 02/09/17 08:29 Labs: Abnormal Lab Results - Last 24 Hours (Table) 02/08/17 02/08/17 02/09/17 Range/Units 17:34 21:26 02:09 WBC (3.8-10.6) k/uL RDW (11.5-15.5) % Neutrophils # (1.3-7.7) k/uL Monocytes # (0-1.0) k/uL Potassium (3.5-5.1) mmol/L Carbon Dioxide (22-30) mmol/L Glucose (74-99) mg/dL POC Glucose (mg/dL) 219 H 217 H 147 H (75-99) mg/dL 02/09/17 02/09/17 02/09/17 Range/Units 07:31 08:29 08:29 WBC 17.0 H (3.8-10.6) k/uL RDW 16.6 H (11.5-15.5) % Neutrophils # 11.9 H (1.3-7.7) k/uL Monocytes # 1.6 H (0-1.0) k/uL Potassium 3.0 L* (3.5-5.1) mmol/L Carbon Dioxide 33 H (22-30) mmol/L Glucose 176 H (74-99) mg/dL POC Glucose (mg/dL) 163 H (75-99) mg/dL 02/09/17 Range/Units 11:55 WBC (3.8-10.6) k/uL RDW (11.5-15.5) % Neutrophils # (1.3-7.7) k/uL Monocytes # (0-1.0) k/uL Potassium (3.5-5.1) mmol/L Carbon Dioxide (22-30) mmol/L Glucose (74-99) mg/dL POC Glucose (mg/dL) 167 H (75-99) mg/dL Microbiology - Last 24 Hours (Table) 02/06/17 08:38 Blood Culture - Preliminary Blood No Growth after 72 hours 02/06/17 08:45 Blood Culture - Preliminary Blood No Growth after 72 hours 02/05/17 16:30 Gram Stain - Final Sputum Sputum Culture - Final Assessment and Plan (1) Septic encephalopathy Status: Resolved (2) Metabolic encephalopathy Status: Resolved (3) Acute respiratory failure Status: Resolved (4) Community acquired pneumonia Status: Acute (5) Congestive heart failure Status: Chronic (6) Hypoxia Status: Resolved (7) Diabetes Status: Chronic Plan: The patient is much better today. Continue supportive care, and treatment for her underlying infections and metabolic processes. No further neurological testing is necessary. Barring any unforeseen abnormalities on her EEG she would be cleared from a neurological standpoint. I have reviewed the history and physical on the above patient. I have reviewed the above note, and agree.
[2017-02-09] MEDS: POTASSIUM CHLORIDE ER 20 MEQ TAB.ER PO SCH ×2 (13:33→14:30)
[2017-02-09] MEDS ORDERED: ACETAMINOPHEN TAB 325 MG TAB PO PRN (14:05)
--- NOTE | 2017-02-09 15:03 | P.PN ---
Subjective This is a 66-year-old -[place] female patient of Dr. Pizano with past medical history of diabetes, hypertension, possible COPD but nurse relates the patient has no history of smoking. Patient apparently was at [facility] in the ER and was discharged home and then came into [facility] emergency center by EMS for acute respiratory distress on nonrebreather and unresponsive. Pulse ox was 54 and patient was intubated and placed on mechanical ventilation. Chest x-ray showed correlate for CHF and pulmonary vascular congestion and developing pulmonary edema, cardiomegaly. Repeat chest x-ray this morning addressed ET tube to be pulled back 2 cm. Patient was started on DuoNeb treatments every 4 hours, cefepime 1 dose and continued on Levaquin, IV Solu-Medrol and admitted to the intensive care unit with consult to Dr. Norwood. Sputum culture is in progress. Tidal volume 450, FiO2 40 and PEEP of 5. NG tube is to suction at this time with plan to start tube . 02/08: Patient apparently exited herself last night, she is currently more awake and more alert today she denies any chest pain or any shortness breath, she had an episode of hemoptysis according to her, she denies any headache at this point in time she is currently getting ready to have an EEG done that was ordered by the neurology service, she has no abdominal pain, nausea, vomiting, she has no muscle weakness. 02/09: Patient is doing much better today, less dyspnea and no coughing or hemoptysis, there is no abdominal pain ,nausea or vomiting. Objective - Vital Signs Vital signs: Vital Signs Temp 97.9 F 02/09/17 07:00 Pulse 83 02/09/17 07:59 Resp 18 02/09/17 07:00 BP 147/89 02/09/17 07:00 Pulse Ox 96 02/09/17 07:00 Intake & Output 02/08/17 02/09/17 02/09/17 18:59 06:59 18:59 Intake Total 192.895 580 Output Total 1275 Balance -1082.105 580 Weight 95 kg Intake: IV 80 Sodium Chloride 0.9% 1, 80 000 ml @ 10 mls/hr IV . Q24H RAISA Rx#:[id number] Intake, IV Titration 112.895 Amount Insulin Regular 100 unit 12.895 In Sodium Chloride 0.9% 100 ml @ Per Protocol IV .Q0M RAISA Rx#:[id number] Magnesium Sulfate-D5w Pmx 100 1 gm In Dextrose/Water 1 100ml.bag @ 100 mls/hr IVPB Q1H RAISA Rx#: [id number] Oral 580 Output: Urine 1275 Other: Voiding Method Indwelling Catheter Toilet # Voids 1 - Exam - Constitutional General appearance: Present: average body habitus, no acute distress - EENT Eyes: Present: EOMI, PERRLA, normal appearance. Absent: ptosis, scleral icterus ENT: Present: hearing grossly normal, NA/AT, normal oropharynx. Absent: thrush Ears: bilateral: normal - Neck Neck: Present: normal ROM. Absent: lymphadenopathy, rigidity Carotids: bilateral: upstroke normal Thyroid: bilateral: normal size - Respiratory Respiratory: bilateral: diminished, dullness, rhonchi, wheezing, prolonged expiration - Cardiovascular Rhythm: regular Heart sounds: normal: S1, S2 Abnormal Heart Sounds: Present: systolic murmur. Absent: rub, click - Gastrointestinal General gastrointestinal: Present: normal bowel sounds, soft. Absent: tenderness, umbilical hernia, ventral hernia - Integumentary Integumentary: Present: normal, normal turgor - Neurologic Neurologic: Present: CNII-XII intact - Musculoskeletal Musculoskeletal: Present: generalized weakness, strength equal bilaterally - Psychiatric Psychiatric: Present: A&O x's 3, appropriate affect, intact judgment & insight - Labs CBC & Chem 7: 02/09/17 08:29 02/09/17 08:29 Labs: Abnormal Lab Results - Last 24 Hours (Table) 02/08/17 02/08/17 02/08/17 Range/Units 09:03 10:03 11:16 POC Glucose (mg/dL) 226 H 300 H 245 H (75-99) mg/dL 02/08/17 02/08/17 02/08/17 Range/Units 12:51 17:34 21:26 POC Glucose (mg/dL) 253 H 219 H 217 H (75-99) mg/dL 02/09/17 02/09/17 Range/Units 02:09 07:31 POC Glucose (mg/dL) 147 H 163 H (75-99) mg/dL Microbiology - Last 24 Hours (Table) 02/06/17 08:38 Blood Culture - Preliminary Blood No Growth after 48 hours 02/06/17 08:45 Blood Culture - Preliminary Blood No Growth after 48 hours 02/05/17 16:30 Gram Stain - Final Sputum Sputum Culture - Final Assessment and Plan Plan: Assessment and Plan Plan: 1. Acute hypoxic respiratory failure secondary to COPD exacerbation, pulmonary edema and possible pneumonia with signs of early sepsis/SIRS. Continue DuoNeb treatments every 4 hours, cephapirin, Levaquin, Solu-Medrol IV. she is currently on room air. 2. Diabetes mellitus. Currently on insulin drip, discussed with the nursing staff to switch her to Humalog 18 units before each meal 3 times every day as the patient is ALLERGIC to Lantus. 3. History of hypertension. Patient is on Norvasc 10 mg daily, losartan 100 mg daily, labetalol 300 mg twice daily. Vasotec 1.25 mg IV every 6 hours as needed for systolic blood pressure greater than 160. 4. Hyperlipidemia. Patient is normally on Lipitor 10 mg daily. 5. DVT prophylaxis. Continue Lovenox 40 mg subcutaneously every 24 hours, continue bilateral knee-high ASHLEY hose. 6. Gastroesophageal prophylaxis. Continue Protonix 40 mg orally every 24 hours. 7. Follow up with [facility] as an outpatient.
[2017-02-09 17:26] LABS: Glucose,Whole Blood 122 mg/dL (75-99)
[2017-02-09] MEDS: LEVOFLOXACIN 750 MG TAB PO SCH (18:30)
[2017-02-09 21:16] LABS: Glucose,Whole Blood 204 mg/dL (75-99)
[2017-02-10 02:20] LABS: Glucose,Whole Blood 141 mg/dL (75-99)
[2017-02-10] MEDS: INSULIN LISPRO (humaLOG) 300 UNIT/3 ML VIAL SQ SCH ×8 (02:30→21:33)
[2017-02-10] MEDS: SODIUM CHLORIDE 0.9% 1,000 ML IV SCH (03:38)
[2017-02-10 07:57] LABS: Glucose,Whole Blood 200 mg/dL (75-99)
[2017-02-10] MEDS: LOSARTAN 50 MG TAB PO SCH (08:29)
[2017-02-10] MEDS: amLODIPine 10 MG TAB PO SCH (08:30)
[2017-02-10] MEDS: ENOXAPARIN 40 MG/0.4 ML SYRINGE SQ SCH (08:30)
[2017-02-10] MEDS: ASPIRIN 325 MG TAB PO SCH (08:31)
[2017-02-10] MEDS: PANTOPRAZOLE 40 MG TABLET PO SCH (08:31)
[2017-02-10] MEDS: METOPROLOL TARTRATE 25 MG TAB PO SCH ×2 (08:31→20:07)
[2017-02-10 08:53] LABS: Basophils % (A) 0 %; CH 26.5; CHCM 32.3; Eosinophils # (A) 0.3 k/uL (0-0.7); Eosinophils % (A) 3 %; HCT 38.6 % (34.0-46.0); HDW 2.28; HGB 12.4 gm/dL (11.4-16.0); Luc # (Auto) 0.18; Luc % (Auto) 2; Lymphocytes # (A) 2.4 k/uL (1.0-4.8); Lymphocytes % (A) 23 %; MCH 26.5 pg (25.0-35.0); MCHC 32.2 g/dL (31.0-37.0); MCV 82.4 fL (80.0-100.0); Mean Platelet Volume 8.2; Monocytes # (A) 0.8 k/uL (0-1.0); Monocytes % (A) 8 %; Neutrophils # (A) 6.9 k/uL (1.3-7.7); Neutrophils % (A) 65 %; RBC 4.68 m/uL (3.80-5.40); RDW 15.4 % (11.5-15.5); WBC 10.7 k/uL (3.8-10.6); WBC (Perox) 11.14
--- NOTE | 2017-02-10 09:15 | XR ---
EXAMINATION TYPE: XR chest 1V portable DATE OF EXAM: 02/10/2017 COMPARISON: 02/09/2017 HISTORY: Difficulty breathing TECHNIQUE: Single frontal view of the chest is obtained. FINDINGS: There is no focal air space opacity, pleural effusion, or pneumothorax seen. Previously s een pulmonary vascular congestion has resolved in the interim. Heart size is again mildly enlarged. T he osseous structures are intact. Degenerative changes are appreciated of the visualized thoracic spi ne. IMPRESSION: Resolution of the previously seen pulmonary vascular congestion. No acute cardiopulmonar y process.
[2017-02-10 09:16] LABS: Anion Gap 10 mmol/L; Blood Urea Nitrogen 17 mg/dL (7-17); Calcium 9.1 mg/dL (8.4-10.2); Carbon Dioxide 32 mmol/L (22-30); Chloride 96 mmol/L (98-107); Glucose 175 mg/dL (74-99); Magnesium 1.8 mg/dL (1.6-2.3); Non-African American GFR(MDRD) 59 (>60 ml/min/1.73 sqM); Potassium 3.3 mmol/L (3.5-5.1); Sodium 138 mmol/L (137-145)
[2017-02-10] MEDS: IPRATROPIUM-ALBUTEROL 3 ML NEB INHALATION SCH ×4 (09:17→19:03)
[2017-02-10] MEDS ORDERED: POTASSIUM CHLORIDE ER 20 MEQ TAB.ER PO STA (09:53)
[2017-02-10 11:50] LABS: Glucose,Whole Blood 159 mg/dL (75-99)
[2017-02-10 14:52] VITALS: BMI 37.8
--- NOTE | 2017-02-10 14:56 | P.PN ---
Subjective This is a 66-year-old -[place] female patient of Dr. Pizano with past medical history of diabetes, hypertension, possible COPD but nurse relates the patient has no history of smoking. Patient apparently was at [facility] in the ER and was discharged home and then came into [facility] emergency center by EMS for acute respiratory distress on nonrebreather and unresponsive. Pulse ox was 54 and patient was intubated and placed on mechanical ventilation. Chest x-ray showed correlate for CHF and pulmonary vascular congestion and developing pulmonary edema, cardiomegaly. Repeat chest x-ray this morning addressed ET tube to be pulled back 2 cm. Patient was started on DuoNeb treatments every 4 hours, cefepime 1 dose and continued on Levaquin, IV Solu-Medrol and admitted to the intensive care unit with consult to Dr. Norwood. Sputum culture is in progress. Tidal volume 450, FiO2 40 and PEEP of 5. NG tube is to suction at this time with plan to start tube . 85: Patient apparently exited herself last night, she is currently more awake and more alert today she denies any chest pain or any shortness breath, she had an episode of hemoptysis according to her, she denies any headache at this point in time she is currently getting ready to have an EEG done that was ordered by the neurology service, she has no abdominal pain, nausea, vomiting, she has no muscle weakness. 8/6: Patient is doing much better today, less dyspnea and no coughing or hemoptysis, there is no abdominal pain ,nausea or vomiting. 8/7: Patient's breathing status continues to improve. She does have a cough with productive phlegm that is thick with blood streaks. Blood sugar was high this morning but overall improved with increase in insulin. Patient states that she did not sleep much last night. She denies any dizziness or lightheadedness. Her last bowel movement was last evening. She states she is not walking very much. Patient has been recommended to follow-up with professor of historical [employer]. Patient was evaluated by physical therapy with recommendations for home. Anticipate discharge home tomorrow. Objective - Vital Signs Vital signs: Vital Signs Temp 97.9 F 02/10/17 07:00 Pulse 80 02/10/17 09:26 Resp 18 02/10/17 07:00 BP 158/86 02/10/17 07:00 Pulse Ox 98 02/10/17 07:00 Intake & Output 02/09/17 02/10/17 02/10/17 18:59 06:59 18:59 Intake Total 440 200 Balance 440 200 Weight 97 kg Intake: Oral 440 200 Other: Voiding Method Toilet # Voids 2 1 # Bowel Movements 0 0 - Exam General appearance: Present: average body habitus, no acute distress - EENT Eyes: Present: EOMI, PERRLA, normal appearance. Absent: ptosis, scleral icterus ENT: Present: hearing grossly normal, NA/AT, normal oropharynx. Absent: thrush Ears: bilateral: normal - Neck Neck: Present: normal ROM. Absent: lymphadenopathy, rigidity Carotids: bilateral: upstroke normal Thyroid: bilateral: normal size - Respiratory Respiratory: bilateral: diminished, dullness, rhonchi, wheezing, prolonged expiration - Cardiovascular Rhythm: regular Heart sounds: normal: S1, S2 Abnormal Heart Sounds: Present: systolic murmur. Absent: rub, click - Gastrointestinal General gastrointestinal: Present: normal bowel sounds, soft. Absent: tenderness, umbilical hernia, ventral hernia - Integumentary Integumentary: Present: normal, normal turgor - Neurologic Neurologic: Present: CNII-XII intact - Musculoskeletal Musculoskeletal: Present: generalized weakness, strength equal bilaterally - Psychiatric Psychiatric: Present: A&O x's 3, appropriate affect, intact judgment & insight - Labs CBC & Chem 7: 02/10/17 07:58 02/10/17 07:58 Labs: Abnormal Lab Results - Last 24 Hours (Table) 02/09/17 02/09/17 02/09/17 Range/Units 11:55 17:18 21:09 WBC (3.8-10.6) k/uL Potassium (3.5-5.1) mmol/L Chloride (98-107) mmol/L Carbon Dioxide (22-30) mmol/L Glucose (74-99) mg/dL POC Glucose (mg/dL) 167 H 122 H 204 H (75-99) mg/dL 02/10/17 02/10/17 02/10/17 Range/Units 02:18 07:54 07:58 WBC 10.7 H (3.8-10.6) k/uL Potassium (3.5-5.1) mmol/L Chloride (98-107) mmol/L Carbon Dioxide (22-30) mmol/L Glucose (74-99) mg/dL POC Glucose (mg/dL) 141 H 200 H (75-99) mg/dL 02/10/17 Range/Units 07:58 WBC (3.8-10.6) k/uL Potassium 3.3 L (3.5-5.1) mmol/L Chloride 96 L (98-107) mmol/L Carbon Dioxide 32 H (22-30) mmol/L Glucose 175 H (74-99) mg/dL POC Glucose (mg/dL) (75-99) mg/dL Microbiology - Last 24 Hours (Table) 02/06/17 08:38 Blood Culture - Preliminary Blood No Growth after 96 hours 02/06/17 08:45 Blood Culture - Preliminary Blood No Growth after 96 hours Assessment and Plan Plan: 1. Acute hypoxic respiratory failure and hypoxic encephalopathy secondary to COPD exacerbation, pulmonary edema and possible pneumonia with signs of early sepsis/SIRS. Continue DuoNeb treatments every 4 hours, cephapirin, Levaquin, Solu-Medrol IV. Consult with Dr. Norwood. Continue vent management per Dr. Norwood. Blood cultures ordered. D-dimer has been ordered by pulmonary medicine with plan for CTA if elevated. Echocardiogram ordered. 2. Diabetes mellitus. Continue Humalog scale every 4 hours. 3. History of hypertension. Patient is on Norvasc 10 mg daily, losartan 100 mg daily, labetalol 300 mg twice daily. Vasotec 1.25 mg IV every 6 hours as needed for systolic blood pressure greater than 160. 4. Hyperlipidemia. Patient is normally on Lipitor 10 mg daily. 5. DVT prophylaxis. Lovenox. 6. Gastroesophageal prophylaxis. Protonix. 7. Follow-up with professor of historical theology as an outpatient. Discharge plan: Return home tomorrow Impression and plan of care have been directed as dictated by the signing physician. Ning Nolen nurse practitioner acting as scribe for signing physician.
[2017-02-10 18:00] LABS: Glucose,Whole Blood 110 mg/dL (75-99)
[2017-02-10] MEDS: LEVOFLOXACIN 750 MG TAB PO SCH (18:14)
[2017-02-10 21:32] LABS: Glucose,Whole Blood 167 mg/dL (75-99)
[2017-02-11] MEDS: INSULIN LISPRO (humaLOG) 300 UNIT/3 ML VIAL SQ SCH ×5 (02:08→13:14)
[2017-02-11 02:19] LABS: Glucose,Whole Blood 174 mg/dL (75-99)
[2017-02-11] MEDS: SODIUM CHLORIDE 0.9% 1,000 ML IV SCH (03:00)
[2017-02-11 07:42] LABS: Glucose,Whole Blood 154 mg/dL (75-99)
[2017-02-11 08:01] VITALS: BP 144/78; RESP 14; TEMP 97.2
[2017-02-11] MEDS: IPRATROPIUM-ALBUTEROL 3 ML NEB INHALATION SCH ×2 (08:01→11:51)
[2017-02-11] MEDS: PANTOPRAZOLE 40 MG TABLET PO SCH (08:16)
[2017-02-11] MEDS: ENOXAPARIN 40 MG/0.4 ML SYRINGE SQ SCH (08:16)
[2017-02-11] MEDS: ASPIRIN 325 MG TAB PO SCH (08:16)
[2017-02-11] MEDS: LOSARTAN 50 MG TAB PO SCH (08:16)
[2017-02-11] MEDS: amLODIPine 10 MG TAB PO SCH (08:16)
[2017-02-11] MEDS: METOPROLOL TARTRATE 25 MG TAB PO SCH (08:16)
[2017-02-11 08:36] LABS: CH 26.4; HCT 38.9 % (34.0-46.0); HDW 2.22; HGB 12.3 gm/dL (11.4-16.0); MCH 26.4 pg (25.0-35.0); MCHC 31.7 g/dL (31.0-37.0); Mean Platelet Volume 8.2; RBC 4.68 m/uL (3.80-5.40); RDW 15.5 % (11.5-15.5); WBC 10.4 k/uL (3.8-10.6)
[2017-02-11 08:51] LABS: Anion Gap 9 mmol/L; Blood Urea Nitrogen 19 mg/dL (7-17); Calcium 9.1 mg/dL (8.4-10.2); Carbon Dioxide 28 mmol/L (22-30); Chloride 101 mmol/L (98-107); Glucose 155 mg/dL (74-99); Non-African American GFR(MDRD) 54 (>60 ml/min/1.73 sqM); Potassium 3.7 mmol/L (3.5-5.1); Sodium 138 mmol/L (137-145)
--- NOTE | 2017-02-11 11:44 | EEG ---
DATE OF SERVICE: 02/08/2017 REASON FOR TESTING: Altered mental status. DESCRIPTION OF THE PROCEDURE: This EEG was performed using a 21 channel digital electroencephalograph, following international 10 - 20 system. DESCRIPTION OF THE RECORDING: From the beginning of the tracing, and with the patient's eyes closed, the background rhythm was mostly consisting of 6 Hz theta frequency in the posterior occipital leads. No obvious asymmetry is seen. Rare movement artifacts and occasional lead artifacts are seen. Photic stimulation was performed with no driving response seen. No pathological waves were elicited. Hyperventilation was not performed. The patient remains awake throughout the tracing. No epileptiform discharges were seen. The EKG leads showed a regular rate and rhythm. INTERPRETATION: This awake EEG is abnormal due to the presence of generalized slowing of the background rhythm, mostly in the theta range. This is consistent with mild encephalopathy. No epileptiform discharges were seen. The absence of epileptiform discharges does not rule out the diagnosis of epilepsy, therefore, clinical correlation is recommended. MTDD
[2017-02-11 12:05] VITALS: PULSE 80
[2017-02-11 12:06] LABS: Glucose,Whole Blood 155 mg/dL (75-99)
--- NOTE | 2017-02-13 14:33 | P.DS ---
Providers Date of admission: 02/05/17 17:46 Expected date of discharge: 02/11/17 Attending physician: Tj Espinoza Consults: 02/05/17 17:46 Consult Physician Routine Consulting Provider: Satish Norwood Consult Reason/Comments: respFail/ICU Do you want consulting provider notified?: Yes 02/07/17 10:44 Consult Physician Routine Consulting Provider: Cristiane Avila Consult Reason/Comments: altered mental status Do you want consulting provider notified?: Yes Primary care physician: [facility] Course: This is a 66-year-old -[place] female patient of Dr. Pizano with past medical history of diabetes, hypertension, possible COPD but nurse relates the patient has no history of smoking. Patient apparently was at [facility] in the ER and was discharged home and then came into [facility] emergency center by EMS for acute respiratory distress on nonrebreather and unresponsive. Pulse ox was 54 and patient was intubated and placed on mechanical ventilation. Chest x-ray showed correlate for CHF and pulmonary vascular congestion and developing pulmonary edema, cardiomegaly. Repeat chest x-ray this morning addressed ET tube to be pulled back 2 cm. Patient was started on DuoNeb treatments every 4 hours, cefepime 1 dose and continued on Levaquin, IV Solu-Medrol and admitted to the intensive care unit with consult to Dr. Norwood. Sputum culture is in progress. Tidal volume 450, FiO2 40 and PEEP of 5. NG tube is to suction at this time with plan to start tube . 85: Patient apparently exited herself last night, she is currently more awake and more alert today she denies any chest pain or any shortness breath, she had an episode of hemoptysis according to her, she denies any headache at this point in time she is currently getting ready to have an EEG done that was ordered by the neurology service, she has no abdominal pain, nausea, vomiting, she has no muscle weakness. 8/6: Patient is doing much better today, less dyspnea and no coughing or hemoptysis, there is no abdominal pain ,nausea or vomiting. 8/7: Patient's breathing status continues to improve. She does have a cough with productive phlegm that is thick with blood streaks. Blood sugar was high this morning but overall improved with increase in insulin. Patient states that she did not sleep much last night. She denies any dizziness or lightheadedness. Her last bowel movement was last evening. She states she is not walking very much. Patient has been recommended to follow-up with [employer]. Patient was evaluated by physical therapy with recommendations for home. Anticipate discharge home tomorrow. 02/11: The patient has been encouraged to follow-up with [employer] after discharge. Her breathing status is stable today and she'll be discharged home today in stable condition. IV Solu-Medrol to oral prednisone taper. Discharge diagnoses: 1. Acute hypoxic respiratory failure and hypoxic encephalopathy secondary to COPD exacerbation, pulmonary edema and possible pneumonia with signs of early sepsis 2. Diabetes mellitus. 3. History of hypertension. 4. Hyperlipidemia. Discharge plan: Return home Impression and plan of care have been directed as dictated by the signing physician. Ning Nolen nurse practitioner acting as scribe for signing physician. Cc: Dr. Juju Pizano Patient Condition at Discharge: Good Plan - Discharge Summary New Discharge Prescriptions: New Aspirin 325 mg PO DAILY tab INSULIN LISPRO (humaLOG) [humaLOG (formulary)] 18 unit SQ AC-TID vial INSULIN LISPRO (humaLOG) [humaLOG (formulary)] 0 unit SQ [id number] vial Levofloxacin [Levaquin] 750 mg PO Q24H #5 tab Metoprolol Tartrate [Lopressor] 25 mg PO Q12H #60 tab Continue traMADol HCL [Ultram] 50 mg PO Q6HR PRN PRN Reason: Pain Atorvastatin [Lipitor] 10 mg PO DAILY Insulin Aspart [NovoLOG] See Protocol SQ AC-TID MDD 90 units Albuterol Nebulized [Ventolin Nebulized] 2.5 mg INHALATION RT-TID Budesonide [Pulmicort] 2 mg INHALATION RT-QID Losartan Potassium [Cozaar] 100 mg PO DAILY Albuterol Inhaler [Ventolin Hfa Inhaler] 2 puff INHALATION RT-Q4H PRN PRN Reason: Shortness Of Breath amLODIPine BESYLATE [Norvasc] 10 mg PO DAILY Discontinued Aspirin EC [Ecotrin Low Dose] 81 mg PO DAILY Labetalol HCl [Trandate] 300 mg PO BID Insulin Glargine [Lantus] 56 unit SQ HS Discharge Medication List Albuterol Inhaler [Ventolin Hfa Inhaler] 2 puff INHALATION RT-Q4H PRN 02/05/17 [ History] Albuterol Nebulized [Ventolin Nebulized] 2.5 mg INHALATION RT-TID 02/05/17 [ History] Atorvastatin [Lipitor] 10 mg PO DAILY 02/05/17 [History] Budesonide [Pulmicort] 2 mg INHALATION RT-QID 02/05/17 [History] Insulin Aspart [NovoLOG] See Protocol SQ AC-TID MDD 90 units 02/05/17 [History] Losartan Potassium [Cozaar] 100 mg PO DAILY 02/05/17 [History] amLODIPine BESYLATE [Norvasc] 10 mg PO DAILY 02/05/17 [History] traMADol HCL [Ultram] 50 mg PO Q6HR PRN 02/05/17 [History] Aspirin 325 mg PO DAILY tab 02/11/17 [Rx] INSULIN LISPRO (humaLOG) [humaLOG (formulary)] 0 unit SQ [id number] vial 02/11/17 [Rx] INSULIN LISPRO (humaLOG) [humaLOG (formulary)] 18 unit SQ AC-TID vial 02/11/17 [Rx] Levofloxacin [Levaquin] 750 mg PO Q24H #5 tab 02/11/17 [Rx] Metoprolol Tartrate [Lopressor] 25 mg PO Q12H #60 tab 02/11/17 [Rx] Follow up Appointment(s)/Referral(s): Juju Pizano MD [Primary Care Provider] - 1 Week Melia Bustamante MD [STAFF PHYSICIAN] - 1 Week Satish Norwood MD [STAFF PHYSICIAN] - 1 Week Patient Instructions/Handouts: Type 2 Diabetes in Adults (DC) Care Plan Goals (MU): ALL PHYSICIANS OFFICES LISTED ARE CURRENTLY CLOSED. PLEASE CALL AND MAKE FOLLOW UP APPOINTMENTS WITH LISTED PHYSICIANS. Discharge Disposition: HOME SELF-CARE
== END 2017-02-11 13:46 | disposition home or self-care (01) | DRG 871 ==
LOC: EC 15:57 → 6ICU 17:46 → 4MS4W 02-08 15:07
PROVIDERS: ADMIT Internal Medicine Geriatric Medicine; ATTEND Internal Medicine Geriatric Medicine
PROC: 5A1945Z Respiratory Ventilation, 24-96 Consecutive Hours (ICD-10-PCS; principal; 2017-02-05)
DX: A41.9 Sepsis, unspecified organism (principal); G93.41 Metabolic encephalopathy; J96.01 Acute respiratory failure with hypoxia; J18.9 Pneumonia, unspecified organism; J44.0 Chronic obstructive pulmonary disease with (acute) lower respiratory infection; N39.0 Urinary tract infection, site not specified; J44.1 Chronic obstructive pulmonary disease with (acute) exacerbation; I11.0 Hypertensive heart disease with heart failure; I50.9 Heart failure, unspecified; E11.65 Type 2 diabetes mellitus with hyperglycemia; E66.01 Morbid (severe) obesity due to excess calories; E78.5 Hyperlipidemia, unspecified; Z79.4 Long term (current) use of insulin; Z79.899 Other long term (current) drug therapy; Z79.82 Long term (current) use of aspirin; Z88.0 Allergy status to penicillin; Z88.8 Allergy status to other drugs, medicaments and biological substances
CPT/HCPCS: 36415; 36600; 70450; 71010; 71275; 80048; 80053; 81001; 82550; 82553; 82805; 83036; 83735; 83880; 84100; 84132; 84484; 85025; 85027; 85379; 85610; 85730; 87040; 87070; 87205; 93005; 93306; 94002; 94003; 94640; 94644; 94760; 95819